=== PATIENT | male | born 1950 | race Caucasian/White ===

== ENCOUNTER 2021-03-23 21:34 | Emergency (ER) | payer OTHER, SELFPAY ==
[2021-03-23 21:40] VITALS: BP 175/74; PULSE 75; RESP 16; TEMP 37.2; O2SAT 97; BMI 25.7
[2021-03-24 00:20] LABS: Add Manual Diff / Slide Review NO; Basophils Absolute Auto 0 /uL (0-100); Basophils Percent Auto 0.4 % (0-2); Eosinophils Absolute Auto 0 /uL (0-450); Eosinophils Percent Auto 0.2 % (2-4); Hematocrit 37.5 % (41-53); Hemoglobin 12.6 g/dL (13.5-17.5); Lymphocytes Absolute Auto 900 /uL (1100-4500); Lymphocytes Percent Auto 8.6 % (25-40); Mean Corpuscular HGB Conc 33.6 % (30-36); Mean Corpuscular Hemoglobin 31.1 PG (26-34); Mean Corpuscular Volume 92.6 fL (80-100); Monocytes Absolute Auto 500 /uL (0-900); Monocytes Percent Auto 4.6 % (3-14); Neutrophils Absolute Auto 9500 /uL (1500-7000); Neutrophils Percent Auto 86.2 % (50-75); Platelet Count 132 X10^3/uL (150-400); Red Blood Cell Count 4.05 X10^6/uL (4.5-5.9)
[2021-03-24] MEDS: cefTRIAXone 2,000 MG in SODIUM CHLORIDE 0.9% 100 ML 200 ML IV (00:20)
[2021-03-24 00:33] LABS: Alanine Aminotransferase 26 IU/L (<50); Albumin 4.1 g/dL (3.5-5.0); Albumin Globulin Ratio 1.4 (1.0-2.8); Alkaline Phosphatase 54 U/L (38-126); Aspartate Aminotransferase 41 IU/L (17-59); BUN Creatinine Ratio 20.5 (6-22); Bilirubin Total 0.6 mg/dL (0.2-1.3); Blood Urea Nitrogen 23 mg/dL (9-20); Calcium 9.1 mg/dL (8.4-10.2); Carbon Dioxide 31 mmol/L (22-32); Chloride 98 mmol/L (98-107); Estimated Glomerular Filt Rate > 60.0 mL/min (>60); Glucose 122 mg/dL (80-110); HEMOLYSIS < 15 (0-50); Sodium 134 mmol/L (137-145); Total Protein 7.1 g/dL (6.3-8.2)
[2021-03-24 00:50] LABS: Procalcitonin 0.56 ng/mL (<0.5)
--- NOTE | 2021-03-24 01:04 | ED.EXTPRO ---
HPI - Extremity Problem General Chief complaint: Extremity Problem,Nontraumatic Stated complaint: rt calf infection Time Seen by Provider: 03/23/21 23:56 Source: patient Mode of arrival: Ambulatory Limitations: no limitations History of Present Illness HPI Narrative: 70-year-old male with history of squamous cell carcinoma of the skin, type 2 diabetes, hypertension presenting today with increased redness on his leg. He actually just received his COVID vaccine booster. However noticed that he was feeling a punky yesterday. Today she noticed that he was a little out of sorts which concerned her. This evening it was found that his right lower leg was erythematous. He seems to have some chronic venous stasis and he has had multiple skin squamous cell carcinomas removed from his legs. He has had body aches and chills as well. [place] but become to the emergency department this evening. Related Data Previous Rx's Medication Instructions Recorded doxycycline hyclate 100 mg capsule 100 mg PO BID #20 cap 03/24/21 Allergies Allergy/AdvReac Type Severity Reaction Status Date / Time No Known Drug Allergies Allergy Verified 03/23/21 22:57 Review of Systems Review of Systems Narrative: GENERAL: Body aches fevers chills HEENT: Denies sinus pain, ear pain, sore throat, difficulty swallowing, neck pain RESPIRATORY: Denies dyspnea, cough, wheezing, hemoptysis, sputum. CARDIOVASCULAR: Denies chest pain, palpitations, orthopnea, edema GASTROINTESTINAL: Denies nausea, vomiting, abdominal pain, diarrhea, constipation, melena. : Denies dysuria, frequency, incontinence, hematuria, urinary retention, flank pain. MUSCULOSKELETAL: Denies weakness, joint pain, or bony pain SKIN: Right leg erythema NEUROLOGIC: Denies weakness, dizziness, headache, numbness, change in speech, confusion PSYCHIATRIC: No concerning psychosocial issues. 12 point review of systems is negative except for those stated above and HPI Patient History Social History Smoking Status: Never smoker Smoking Status: Never smoker alcohol intake frequency: 0-2 drinks per day Substance Use Type: does not use Exam Initial Vital Signs Initial Vital Signs: Vital Signs Temperature 98.9 F 03/23/21 21:40 Pulse Rate 75 03/23/21 21:40 Respiratory Rate 16 03/23/21 21:40 Blood Pressure 175/74 H 03/23/21 21:40 Pulse Oximetry 97 09/21/21 21:40 GENERAL: Alert well-appearing 70-year-old male HEENT: Head atraumatic,EOMI, pupils reactive, face symmetric, moist mucous membranes CARDIOVASCULAR: Regular rate and rhythm without murmurs, rubs or gallops. RESPIRATORY: Breath sounds equal bilaterally, no wheezes rales or rhonchi. ABDOMEN: Soft, nontender. Normoactive bowel sounds all 4 quadrants. No guarding or rebound. EXTREMITIES: Normal range of motion, no clubbing or edema. Neurovascularly intact NEUROLOGICAL: Alert and oriented x4.Normal gait and speech SKIN: Right lower leg patchy erythematous areas blanchable no abscess, non circumferential remains below the knee Course Orders Ordered: ED Orders 03/23/21 23:56 Blood Culture Stat Complete Blood Count AUTO DIFF Stat Comprehensive Metabolic Panel Stat Lactate (Lactic Acid) Stat Procalcitonin Stat Discontinued Medications Ceftriaxone Sodium 2,000 mg/ (Sodium Chloride) 100 mls @ 200 mls/hr IV NOW ONE Stop: 03/23/21 23:57 Last Infusion: 03/24/21 00:54 Dose: 0 mls/hr Documented by: Admin: 03/24/21 00:20 Dose: 200 mls/hr Documented by: SHILA Vital Signs Vital signs: Vital Signs - 8 hr 03/23/21 21:40 03/24/21 01:43 Temperature 98.9 F 99.7 F H Pulse Rate 75 82 Respiratory Rate 16 18 Blood Pressure 175/74 H 159/71 H Pulse Oximetry 97 97 MDM - Extremity (Nontraumatic) Lab Data Result diagrams: 03/24/21 00:10 03/24/21 00:10 Labs: Lab Results 03/24/21 03/24/21 03/24/21 Range/Units 00:10 00:10 00:10 WBC 11.0 (4.5-11.0) X10^3/uL RBC 4.05 L (4.5-5.9) X10^6/uL Hgb 12.6 L (13.5-17.5) g/dL Hct 37.5 L (41-53) % MCV 92.6 (80-100) fL MCH 31.1 (26-34) PG MCHC 33.6 (30-36) % RDW 14.0 (11.6-14.8) % Plt Count 132 L (150-400) X10^3/uL Neut % (Auto) 86.2 H (50-75) % Lymph % (Auto) 8.6 L (25-40) % [place] % (Auto) 4.6 (3-14) % Eos % (Auto) 0.2 L (2-4) % Baso % (Auto) 0.4 (0-2) % Neut # (Auto) 9500 H (8053-5001) /uL Lymph # (Auto) 900 L (8387-1951) /uL [place] # (Auto) 500 (0-900) /uL Eos # (Auto) 0 (0-450) /uL Baso # (Auto) 0 (0-100) /uL Sodium 134 L (137-145) mmol/L Potassium 4.0 (3.4-5.1) mmol/L Chloride 98 (98-107) mmol/L Carbon Dioxide 31 (22-32) mmol/L BUN 23 H (9-20) mg/dL Creatinine 1.12 (0.66-1.25) mg/dL Estimated GFR > 60.0 (>60) mL/min BUN/Creatinine Ratio 20.5 (6-22) Glucose 122 H (80-110) mg/dL Lactate 1.0 (0.7-2.1) mmol/L Calcium 9.1 (8.4-10.2) mg/dL Total Bilirubin 0.6 (0.2-1.3) mg/dL AST 41 (17-59) IU/L ALT 26 (<50) IU/L Alkaline Phosphatase 54 (38-126) U/L Total Protein 7.1 (6.3-8.2) g/dL Albumin 4.1 (3.5-5.0) g/dL Globulin 3.0 (1.7-4.1) g/dL Albumin/Globulin Ratio 1.4 (1.0-2.8) Procalcitonin 0.56 H (<0.5) ng/mL [facility] Narrative Medical decision making narrative: Patient is found to have leukocytosis of 11 an elevated procalcitonin 0.56 site of infection is his right lower leg consistent with cellulitis. He is given 1 dose of Rocephin in the emergency department. No signs of severe sepsis. He overall appears well. At this time reasonable to start on outpatient antibiotics and monitor closely. Discharge Plan Departure Patient Disposition: Home Clinical Impression: Cellulitis of leg, right Instructions: DI for Cellulitis -- Adult Activity Restrictions/Additional Instructions: *You have been diagnosed with cellulitis right leg *What to do: At this time you have an infection of your right leg. Please monitor closely for any worsening redness. At this time you do not need to be admitted to the hospital *Continue to take medications as directed Doxycycline 100 mg twice a day for 7 days *Follow up with your primary care provider in 2-3 days *Return to ER if you should have increasing redness, increasing confusion, increasing pain any new, worsening or concerning symptoms Prescriptions: New doxycycline hyclate 100 mg capsule 100 mg PO BID Qty: 20 RF: 0
[2021-03-24 01:43] VITALS: BP 159/71; PULSE 82; RESP 18; TEMP 37.6; O2SAT 97
== END 2021-03-24 01:44 | disposition home or self-care (01) ==
PROVIDERS: Emergency Provider Emergency Medicine
DX: L03.115 Cellulitis of right lower limb (principal)
CPT/HCPCS: 36415; 80053; 83605; 84145; 85025; 87040; 96365; 99284; J0696

== ENCOUNTER → 2022-06-21 06:57 | Outpatient (CLI) | payer MEDICARE, SELFPAY ==
--- NOTE | 2022-06-21 | DI.ECHO.S_ITS ---
[place] [facility]---------+ [facility] +---------+ : : [address] : : : : [id number] : : : : Phone: [phone]+ Echocardiogram Report + + :Name: KRISTI CRYSTAL Study Date: 06/21/2022 Height: 73 in : :[facility] ReadingLocation: Weight: 220 lb : : Gender: Male BSA: 2.2 m2 : :: 1950 Age: 71 yrs BP: 164/64 mmHg: :Reason For Study: TIA : : Performed By: Carroll Mckeon : :Referring: LISA TINOCO W : + + Interpretation Summary 1) Normal left ventricular thickness, size, wall motion, and systolic function (EF 60-65%). 2) Normal right ventricular size and function. 3) No significant valvular abnormalities. 4) No prior Echo available for comparison. Procedure: A two-dimensional transthoracic echocardiogram with color flow and Doppler was performed. The study quality was technically adequate. There is no prior echocardiogram noted for this patient. The patient was in normal sinus rhythm during the exam. Left Ventricle: The left ventricle is normal in size. There is normal left ventricular wall thickness. The ejection fraction is estimated to be 60-65%. There are no focal wall motion abnormalities. Diastolic parameters suggest a relaxation abnormality of the left ventricle, consistent with probable normal filling pressures. Right Ventricle: The right ventricle is normal in size and function. Atria: Both atria are moderately dilated. There is no Doppler evidence for an atrial septal defect. Mitral Valve: There is mild mitral annular calcification. There is trace mitral regurgitation. Aortic Valve: The aortic valve is trileaflet. The aortic valve is mildly calcified. The aortic valve opens well. There is no aortic valve stenosis. No aortic regurgitation is present. Tricuspid Valve: The tricuspid valve is normal in structure and function. There is trace tricuspid regurgitation. The right ventricular systolic pressure is estimated to be at least 34 mmHg based on an estimated right atrial pressure of 3 mm Hg. Pulmonic Valve: The pulmonic valve is not well visualized. There is trace pulmonic regurgitation. Great Vessels: The aortic root is normal size. The dimensions of the ascending aorta are normal. The pulmonary artery is normal size. The IVC is of normal diameter and collapses greater than 50% with a sniff. This suggests a low right atrial pressure of 3 mm Hg. Pericardium/ Pleura There is no pericardial effusion. There is no pleural effusion. MMode/2D Measurements & Calculations LVIDd: 5.2 cm LVOT diam: 2.2 cm LVIDs: 3.3 cm Ao root diam: 3.4 cm FS: 37.2 % asc Aorta Diam: 3.3 cm EPSS: 0.22 cm IVSd: 1.00 cm LVPWd: 1.1 cm LV randall. diameter/BSA (cm/m^2): 2.3 LV sys. diameter/BSA (cm/m^2): 1.5 LA A2 area: 24.4 cm2 RA long axis: 6.1 cm LA A4 area: 28.0 cm2 RA area: 24.2 cm2 LA length (vol): 6.6 cm RA vol: 82.1 ml LA vol: 87.2 ml RA : 36.6 ml/m2 LA vol index: 38.9 ml/m2 IVC diam: 1.9 cm TAPSE: 2.7 cm Doppler Measurements & Calculations Ao V2 max: 147.4 cm/sec LVOT Max Umair: 132.0 cm/sec Ao V2 mean: 112.4 cm/sec LV V1 max P.0 mmHg Ao max P.7 mmHg LV V1 VTI: 36.8 cm Ao mean P.4 mmHg BERT(I,D): 3.5 cm2 Ao V2 VTI: 39.8 cm BERT(V,D): 3.4 cm2 sev ratio: 0.93 BERT indexed to BSA (cm^2/m^2): 1.6 MV E max umair: 81.0 cm/sec TR max umair: 280.2 cm/sec MV A max umair: 105.0 cm/sec TR max P.4 mmHg MV E/A: 0.77 PA V2 max: 96.2 cm/sec Med Peak E' Umair: 6.6 cm/sec PA V2 mean: 68.1 cm/sec E/E' med: 12.3 PA mean P.1 mmHg Lat Peak E' Umair: 8.3 cm/sec PA pr(Accel): 24.2 mmHg E/E' lat: 9.7 E/e' average: 11.0 MV dec time: 0.22 sec SV([facility]): 140.1 ml Reading Physician:01:02 PM
== END ==
PROVIDERS: PCP Internal Medicine; Referring Provider Internal Medicine; Visit Provider Internal Medicine
DX: G45.9 Transient cerebral ischemic attack, unspecified (principal); I34.81 Nonrheumatic mitral (valve) annulus calcification
CPT/HCPCS: 93306

== ENCOUNTER 2025-05-12 18:43 | Inpatient (IN) | payer MEDICARE, SELFPAY ==
[2025-05-12] VITALS (19 sets, daily range): BP systolic 182–221; BP diastolic 63–152; PULSE 52–63; RESP 15–24; TEMP 36.2–36.3; O2SAT 89–99; BMI 28.0
--- NOTE | 2025-05-12 18:58 | PC.NURSE ---
Dr Garrido at beside. LKW 1600. Code stroke called
--- NOTE | 2025-05-12 19:00 | DI.CT.S_ITS ---
PROCEDURE: CT STROKE INDICATIONS: Positive BE-FAST, Stroke symptoms TECHNIQUE: Noncontrast 4.5 mm thick angled axial sections acquired from the foramen magnum to the vertex, with coronal reformats. For radiation dose reduction, the following was used: automated exposure control, adjustment of mA and/or kV according to patient size. COMPARISON: None. FINDINGS: Image quality: Diagnostic. CSF spaces: Basal cisterns are patent. No extra-axial fluid collections. Ventricles are normal in size and shape. Brain: No midline shift. No intracranial mass effect or hemorrhage. Thakkar- white matter interface is normal. Diffuse cerebral volume loss. Patchy areas of white matter hypoattenuation often associated with small vessel ischemic disease. Intracranial atherosclerotic calcification. Focal hypoattenuating lesion in the teja on the left. Skull and face: Calvarium and visualized facial bones are intact, without suspicious lesions. Sinuses: Partial opacification of the ethmoidal sinuses and mucous retention cysts in the maxillary sinuses. IMPRESSION: No acute intracranial hemorrhage. No large vessel territory infarct. Among the white-matter lesions there is a focal hypoattenuating lesion in the teja. This could represent an acute or chronic lacunar infarct. Findings were discussed with Dr Angeles Garrido by myself by telephone at 7:29 p.m. PST 05/12/2025. This study fulfills neurological imaging criteria for inclusion or exclusion of acute stroke therapies based on available published neurological imaging guidelines. Dictated by: Carlos Drew M.D. on 05/12/2025 at 19:23 Approved by: Carlos Drew M.D. on 05/12/2025 at 19:29
--- NOTE | 2025-05-12 19:00 | DI.CT.S_ITS ---
PROCEDURE: CT ANGIO HEAD AND NECK INDICATIONS: facial assymetry TECHNIQUE: After the administration of intravenous contrast, 1 mm thick sections acquired from the aortic arch through the [place] of [place]. 3-dimensional onyibjh-usnrwrvvh-tzhcmmyvgf (MIP) and/or volume rendering reformats were acquired of the central intracranial vasculature and neck separately. For radiation dose reduction, the following was used: automated exposure control, adjustment of mA and/or kV according to patient size. COMPARISON: None. FINDINGS: Image quality: Diagnostic. Cerebral CT Angiogram: Internal carotid arteries: No acute findings. Moderate atherosclerosis of the petrous and cavernous portions bilaterally. No occlusion. No aneurysm. Anterior cerebral arteries: Unremarkable. No significant stenosis. No occlusion. No aneurysm. Middle cerebral arteries: Unremarkable. No significant stenosis. No occlusion. No aneurysm. Posterior cerebral arteries: Unremarkable. No significant stenosis. No occlusion. No aneurysm. Basilar artery: Unremarkable. No significant stenosis. No occlusion. No aneurysm. Vertebral arteries: Intracranial atherosclerotic calcifications. Dural venous sinuses: Unremarkable given phase of enhancement. Other: Arterial phase appearance of the brain parenchyma is unremarkable. Neck CT Angiogram: Internal carotid arteries: 50-75 percent stenosis of the proximal right ICA which may be overestimated by bulky calcifications. Less than 50 percent stenosis of the proximal left ICA which may be overestimated by bulky calcifications. No dissection or occlusion. Common carotid arteries: Unremarkable. No significant stenosis. No dissection or occlusion. External carotid arteries: Unremarkable. No occlusion. Vertebral arteries: Unremarkable. No significant stenosis. No dissection or occlusion. Aortic Arch and Mediastinum: Partially visualized aortic arch unremarkable without evidence of aneurysm. Origins of the great vessels unremarkable. Other: Severe degenerative changes of the cervical spine. IMPRESSION: No acute occlusion or critical stenosis. Calcified atherosclerotic plaques with Right ICA stenosis approximately 50-75 percent. Left ICA stenosis less than 50 percent. Any quantitative measurements of stenosis were performed using NASCET criteria. Dictated by: Carlos Drew M.D. on 05/12/2025 at 19:36 Approved by: Carlos Drew M.D. on 05/12/2025 at 19:41
--- NOTE | 2025-05-12 19:00 | DI.RAD.S_ITS ---
PROCEDURE: XR CHEST 1V INDICATIONS: Possible stroke TECHNIQUE: One view of the chest was acquired. COMPARISON: None. FINDINGS: Surgical changes and devices: None. Lungs and pleura: Lungs are clear. No pleural effusions or pneumothorax. Mediastinum: Mediastinal contours appear normal. Heart size is normal. Atherosclerotic vascular disease of the aortic arch. Bones and chest wall: No suspicious bony lesions. Overlying soft tissues appear unremarkable. IMPRESSION: No acute cardiopulmonary abnormality is seen. Dictated by: Kostas Farrell M.D. on 05/12/2025 at 19:46 Approved by: Kostas Farrell M.D. on 05/12/2025 at 19:46
[2025-05-12 19:07] LABS: Add Manual Diff / Slide Review NO; Hematocrit 38.1 % (41-53); Hemoglobin 13.1 g/dL (13.5-17.5); Lymphocytes Absolute Auto 1000 /uL (1100-4500); Mean Corpuscular HGB Conc 34.4 % (30-36); Mean Corpuscular Hemoglobin 31.2 PG (26-34); Mean Corpuscular Volume 90.9 fL (80-100); Platelet Count 173 X10^3/uL (150-400)
[2025-05-12 19:18] LABS: Alanine Aminotransferase 20 IU/L (<50); Albumin 4.5 g/dL (3.5-5.0); Albumin Globulin Ratio 1.6 (1.0-2.8); Alkaline Phosphatase 55 U/L (38-126); Blood Urea Nitrogen 33 mg/dL (9-20); Calcium 9.2 mg/dL (8.4-10.2); Carbon Dioxide 25 mmol/L (22-32); Chloride 102 mmol/L (98-107); Creatine Kinase 130 U/L (55-170); Estimated Glomerular Filt Rate 54 mL/min (>60); Globulin 2.9 g/dL (1.7-4.1); Glucose 255 mg/dL (70-99); HEMOLYSIS < 15 (0-50); Potassium 3.6 mmol/L (3.4-5.1); Sodium 138 mmol/L (137-145); Total Protein 7.4 g/dL (6.3-8.2)
[2025-05-12 19:29] LABS: INR 1.1 (0.9-1.3); PTT Partial Thromboplastin Tim 31 SECONDS (25.1-36.5); Prothrombin Time 12.4 SECONDS (9.4-12.5)
[2025-05-12 19:30] LABS: Troponin I < 0.012 ng/mL (0.01-0.034)
--- NOTE | 2025-05-12 19:32 | EKG_ITS ---
[facility] [address], [place] [address] Test Date: 2025-05-12 Pat Name: Clark Briseno Department: [facility] Room: Gender: Male [employer] Fe[employer]: : 1950 Requested By: Order Number: [id number] Reading MD: Clay Acevedo MD Measurements Intervals [place] Rate: 55 P: 49 PA: 164 QRS: 29 QRSD: 100 T: 65 QT: 482 QTc: 461 Interpretive Statements Sinus bradycardia Nonspecific ST abnormality Electronically Signed On 05-13-2025 7:46:39 PST by Clay Acevedo MD
--- NOTE | 2025-05-12 19:33 | ED_ITS ---
HPI - Neuro Symptoms/Deficit General Chief Complaint: Neuro Symptoms/Deficit Stated Complaint: PC ref, mouth drooping, poss stroke? Time Seen by Provider: 05/12/25 18:52 Source: patient Mode of arrival: Ambulatory History of Present Illness HPI Narrative: 74-year-old gentleman with a history of Parkinson's disease, hyperlipidemia, hypertension who at 4:00 p.m. today was noted by his to have weakness to the right side of his face. On arrival in the emergency room he also had some mild dysarthria. Code stroke was called. He noted that he had a bit of gait unsteadiness walking into the hospital but on physical exam he had normal strength and no diminished sensation appreciated. Related Data Previous Rx's ?Medication ?Instructions ?Recorded doxycycline hyclate 100 mg capsule 100 mg PO BID #20 c aps 03/24/21 Allergies Allergy/AdvReac Type Severity Reaction Status Date / Time No Known Drug Allergies Allergy Verified 05/12/25 18:50 Review of Systems Review of Systems Narrative: Pertinent positive and negative findings as per HPI Patient History Social History Smoking Status: Former smoker Smoking Status: Former smoker alcohol intake frequency: 0-2 drinks per day Exam Initial Vital Signs Initial Vital Signs: Vital Signs Temperature 97.4 F L 05/12/25 18:46 Pulse Rate 63 05/12/25 18:46 Respiratory Rate 18 05/12/25 18:46 Blood Pressure 182/79 H 05/12/25 18:46 Pulse Oximetry 97 05/12/25 18:46 Oxygen Delivery Method Room Air 05/12/25 18:46 General: Healthy appearing, in no acute distress. Able to give a complete and coherent history. Well-nourished well-developed HEENT: Moist mucous membranes, normal sclera with reactive pupils, Neck: No JVD, supple Respiratory: Lungs are clear to auscultation, no wheezing no rales no rhonchi. Full and symmetrical air movement Cardiac: Regular rate and rhythm no murmurs no bruits Abdomen: Soft, nontender, no rebound or guarding, no flank pain Skin: Warm and dry, no rashes Neurologic: Mild right facial droop, mild dysarthria NIH Extremities: No trauma, well perfused Psych: Cooperative, appropriate insight and affect NIH Stroke Scale/Score 05/12/2025 RESULT SUMMARY: 2 points NIH Stroke Scale INPUTS: 1A: Level of consciousness ?> 0 = Alert; keenly responsive 1B: Ask month and age ?> 0 = Both questions right 1C: 'Blink eyes' & 'squeeze hands' ?> 0 = Performs both tasks 2: Horizontal extraocular movements ?> 0 = Normal 3: Visual aquino ?> 0 = No visual loss 4: Facial palsy ?> 1 = Minor paralysis (flat nasolabial fold, smile asymmetry) 5A: Left arm motor drift ?> 0 = No drift for 10 seconds 5B: Right arm motor drift ?> 0 = No drift for 10 seconds 6A: Left leg motor drift ?> 0 = No drift for 5 seconds 6B: Right leg motor drift ?> 0 = No drift for 5 seconds 7: Limb Ataxia ?> 0 = No ataxia 8: Sensation ?> 0 = Normal; no sensory loss 9: Language/aphasia ?> 0 = Normal; no aphasia 10: Dysarthria ?> 1 = Mild-moderate dysarthria: slurring but can be understood 11: Extinction/inattention ?> 0 = No abnormality Course Orders Ordered: ED Orders 05/12/25 18:59 Complete Blood Count AUTO DIFF Stat Comprehensive Metabolic Panel Stat PTT Partial Thromboplastin Quentin Stat Prothrombin Time INR Stat Troponin & CK Cardiac Panel Stat 05/12/25 19:[address] angio head and neck Stat XR chest 1V Stat EKG-12 Lead Stat 05/12/25 20:18 Urine Culture Stat Urine Drug Screen, Rapid Stat Urine Microscopic Stat 05/12/25 22:07 Consult to Occupational Therapy Evaluate & Treat Consult to Physical Therapy Evaluate & Treat Consult to Speech Therapy Evaluate & Treat 05/13/25 06:00 Basic Metabolic Panel DAILY Complete Blood Count AUTO DIFF DAILY Acetaminophen (Acetaminophen 325 Mg Tablet) 650 mg PO Q6H PRN PRN Reason: Fever/Mild Pain (1-3) Aspirin (Aspirin Ec 81 Mg Tablet) 81 mg PO DAILY MARY Clopidogrel Bisulfate (Clopidogrel 75 Mg Tablet) 75 mg PO DAILY [facility] Heparin Sodium (Porcine) (Heparin 5,000 Unit/Ml Vial) 5,000 unit SUBCUT BID [facility] Sodium Chloride (Normal Saline 0.9%) 1,000 mls @ 100 mls/hr IV CONT MARY Naloxone HCl (Naloxone 0.4 Mg/Ml Vial) 0.2 mg IV Q2MIN PRN PRN Reason: Opiate Reversal Ondansetron HCl (Ondansetron 4 Mg/2 Ml Inj) 4 mg IV NOW PRN PRN Reason: Nausea And Vomiting Ondansetron HCl (Ondansetron 4 Mg Odt) 4 mg PO NOW PRN PRN Reason: Nausea And Vomiting Ondansetron HCl (Ondansetron 4 Mg/2 Ml Inj) 4 mg IV Q8HR PRN PRN Reason: Nausea And Vomiting Vital Signs Vital signs: Vital Signs - 8 hr 05/12/25 18:46 05/12/25 19:21 05/12/25 19:22 Temperature 97.4 F L Pulse Rate 63 60 Respiratory Rate 18 Blood Pressure 182/79 H Pulse Oximetry 97 98 98 Oxygen Delivery Method Room Air 05/12/25 19:22 05/12/25 19:30 05/12/25 19:30 Temperature Pulse Rate 57 L Respiratory Rate Blood Pressure 184/76 H 186/78 H Pulse Oximetry 99 Oxygen Delivery Method 05/12/25 20:00 05/12/25 20:01 05/12/25 20:01 Temperature Pulse Rate 56 L 56 L Respiratory Rate Blood Pressure 212/80 H Pulse Oximetry 96 97 Oxygen Delivery Method MDM - Neuro Symptoms/Deficit Lab Data 05/12/25 18:59 05/12/25 18:59 Labs: Lab Results 05/12/25 05/12/25 05/12/25 Range/Units 18:55 18:59 20:18 WBC 5.9 (4.5-11.0) X10^3/uL RBC 4.19 L (4.5-5.9) X10^6/uL Hgb 13.1 L (13.5-17.5) g/dL Hct 38.1 L (41-53) % MCV 90.9 (80-100) fL MCH 31.2 (26-34) PG MCHC 34.4 (30-36) % RDW 13.7 (11.6-14.8) % Plt Count 173 (150-400) X10^3/uL Neut % (Auto) 72.5 (50-75) % Lymph % (Auto) 17.7 L (25-40) % [place] % (Auto) 5.7 (3-14) % Eos % (Auto) 3.4 (2-4) % Baso % (Auto) 0.7 (0-2) % Neut # (Auto) 4300 (9539-2876) /uL Lymph # (Auto) 1000 L (1508-3862) /uL [place] # (Auto) 300 (0-900) /uL Eos # (Auto) 200 (0-450) /uL Baso # (Auto) 0 (0-100) /uL PT 12.4 (9.4-12.5) SECONDS INR 1.1 (0.9-1.3) APTT 31 (25.1-36.5) SECONDS Sodium 138 (137-145) mmol/L Potassium 3.6 (3.4-5.1) mmol/L Chloride 102 (98-107) mmol/L Carbon Dioxide 25 (22-32) mmol/L BUN 33 H (9-20) mg/dL Creatinine 1.35 H (0.66-1.25) mg/dL Estimated GFR 54 L (>60) mL/min BUN/Creatinine Ratio 24.4 H (6-22) Glucose 255 H (70-99) mg/dL POC Whole Bld Glucose 247 H (70-99) mg/dL Calcium 9.2 (8.4-10.2) mg/dL Total Bilirubin 0.4 (0.2-1.3) mg/dL AST 50 (17-59) IU/L ALT 20 (<50) IU/L Alkaline Phosphatase 55 (38-126) U/L Total Creatine Kinase 130 (55-170) U/L Troponin I < 0.012 (0.01-0.034) ng/mL Total Protein 7.4 (6.3-8.2) g/dL Albumin 4.5 (3.5-5.0) g/dL Globulin 2.9 (1.7-4.1) g/dL Albumin/Globulin Ratio 1.6 (1.0-2.8) Urine RBC 0-1/hpf (0-5/HPF) Urine WBC 0-1/hpf (0-5/HPF) Ur Squamous Epith Cells None seen (0-5/HPF) Ur Transition Epith Cell 0-1/hpf (0-5/HPF) Urine Bacteria Few (2-10) H (None) Hyaline Casts 0-1/lpf (None) Urine Mucus 1+ H (Negative) Ur Culture Indicated? Cult not indicated Vol Urine Centrifuged 10ml (spun) U Opiates 300ng/mL cut Negative (Negative) Ur Oxycodone Screen Negative (Negative) Urine Methadone Screen Negative (Negative) Ur Barbiturates Screen Negative (Negative) U Tricyclic Antidepress Negative (Negative) Ur Phencyclidine Scrn Negative (Negative) Ur Amphetamines Screen Negative (Negative) U Methamphetamines Scrn Negative (Negative) Ur MDMA Scrn (Ecstasy) Negative (Negative) U Benzodiazepines Scrn Negative (Negative) Urine Cocaine Screen Negative (Negative) U Marijuana (THC) Screen Negative (Negative) Urine pH Normal (Normal) Urine Specific [place] Normal (Normal) Ur Creatinine Normal (Normal) Urine Dip Bedside Urine Glucose 250 mg/dl Bedside Urine Bilirubin - Negative Bedside Urine Ketone +/- 5 Urine Specific [place] 1.015 Bedside Urine Occult Blood - Negative Bedside Urine pH 6.0 Bedside Urine Protein + 30 Bedside Urine Urobilinogen - Negative Bedside Urine Nitrite - Negative Bedside Urine Leukocytes - Negative Esterase Imaging Data CT scan - head: Radiologist's Impression: PROCEDURE: CT STROKE INDICATIONS: Positive BE-FAST, Stroke symptoms TECHNIQUE: Noncontrast 4.5 mm thick angled axial sections acquired from the foramen magnum to the vertex, with coronal reformats. For radiation dose reduction, the following was used: automated exposure control, adjustment of mA and/or kV according to patient size. COMPARISON: None. FINDINGS: Image quality: Diagnostic. CSF spaces: Basal cisterns are patent. No extra-axial fluid collections. Ventricles are normal in size and shape. Brain: No midline shift. No intracranial mass effect or hemorrhage. Thak[place]- white matter interface is normal. Diffuse cerebral volume loss. Patchy areas of white matter hypoattenuation often associated with small vessel ischemic disease. Intracranial atherosclerotic calcification. Focal hypoattenuating lesion in the teja on the left. Skull and face: Calvarium and visualized facial bones are intact, without suspicious lesions. Sinuses: Partial opacification of the ethmoidal sinuses and mucous retention cysts in the maxillary sinuses. IMPRESSION: No acute intracranial hemorrhage. No large vessel territory infarct. Among the white-matter lesions there is a focal hypoattenuating lesion in the teja. This could represent an acute or chronic lacunar infarct. Findings were discussed with Dr Angeles Garrido by myself by telephone at 7:29 p.m. PST 05/12/2025. This study fulfills neurological imaging criteria for inclusion or exclusion of acute stroke therapies based on available published neurological imaging guidelines. Dictated by: Carlos Drew M.D. on 05/12/2025 at 19:23 CT A head and neck: Radiologist's Impression: OCEDURE: CT ANGIO HEAD AND NECK INDICATIONS: facial assymetry TECHNIQUE: After the administration of intravenous contrast, 1 mm thick sections acquired from the aortic arch through the [place]. 3-dimensional [id number] (MIP) and/or volume rendering reformats were acquired of the central intracranial vasculature and neck separately. For radiation dose reduction, the following was used: automated exposure control, adjustment of mA and/or kV according to patient size. COMPARISON: None. FINDINGS: Image quality: Diagnostic. Cerebral CT Angiogram: Internal carotid arteries: No acute findings. Moderate atherosclerosis of the petrous and cavernous portions bilaterally. No occlusion. No aneurysm. Anterior cerebral arteries: Unremarkable. No significant stenosis. No occlusion. No aneurysm. Middle cerebral arteries: Unremarkable. No significant stenosis. No occlusion. No aneurysm. Posterior cerebral arteries: Unremarkable. No significant stenosis. No occlusion. No aneurysm. Basilar artery: Unremarkable. No significant stenosis. No occlusion. No aneurysm. Vertebral arteries: Intracranial atherosclerotic calcifications. Dural venous sinuses: Unremarkable given phase of enhancement. Other: Arterial phase appearance of the brain parenchyma is unremarkable. Neck CT Angiogram: Internal carotid arteries: 50-75 percent stenosis of the proximal right ICA which may be overestimated by bulky calcifications. Less than 50 percent stenosis of the proximal left ICA which may be overestimated by bulky calcifications. No dissection or occlusion. Common carotid arteries: Unremarkable. No significant stenosis. No dissection or occlusion. External carotid arteries: Unremarkable. No occlusion. Vertebral arteries: Unremarkable. No significant stenosis. No dissection or occlusion. Aortic Arch and Mediastinum: Partially visualized aortic arch unremarkable without evidence of aneurysm. Origins of the great vessels unremarkable. Other: Severe degenerative changes of the cervical spine. IMPRESSION: No acute occlusion or critical stenosis. Calcified atherosclerotic plaques with Right ICA stenosis approximately 50-75 percent. Left ICA stenosis less than 50 percent. Any quantitative measurements of stenosis were performed using NASCET criteria. Dictated by: Carlos Drew M.D. on 05/12/2025 at 19:36 MDM Narrative Medical decision making narrative: CC: Right-sided facial weakness with dysarthria Complicating co-morbidities: Hypertension, hyperlipidemia, prior TIA Data collected from: patient, Medical records reviewed: No records are available Differential considered: Wallace's palsy, stroke, infectious etiology Exam documented above, pertinent findings include: Mild right facial droop, tongue does not deviate when extended, mild dysarthria remainder of exam is benign. NIH score equals 2 Lab Test results independently reviewed as above. Pertinent findings: CBC is unremarkable Metabolic panel shows creatinine at 1.35. Glucose at 2:55 a.m. Troponin is undetectable Urine does not suggest urinary tract infection Urine tox screen is unremarkable Independently reviewed EKG: Sinus bradycardia at a rate of 55. Nonspecific STT wave changes without acute ischemia Imaging studies independently reviewed: CT of the brain shows Among the white-matter lesions there is a focal hypoattenuating lesion in the teja. This could represent an acute or chronic lacunar infarct. CT angiogram of the head and neck is unremarkable Chest x-ray is unremarkable Consultations: Stroke consultation with [facility], Dr. Princess Jha. Given an NIH score of 2 without debilitating findings and possible acute lacunar infarct recommendation was to not administer TNK. She did recommend Plavix slowed with 300 mg, discontinuing the aspirin/dipyridamole and continuing 75 mg of Plavix with 81 mg of aspirin daily for 21 days and then continuing the simply aspirin. Continuing aggressive lipid and blood pressure control with permissive hypertension at this time. Recommended MRI, echocardiogram. Re-evaluation and discussion: 10pm patient is re-evaluated, persistent right middle minor facial droop and dysarthria unchanged NIH score. Reason for no TNK administered given as well as recommendations for hospitalization, change to medications, discontinuation of dipyridamole, need for MRI and consideration of echocardiogram all reviewed. He is hemodynamically stable. Questions has been answered, care is discussed with the hospitalist service and he will be admitted for further workup Discharge Plan Departure Patient Disposition: Admitted as Observation Clinical Impression: Cerebrovascular accident Qualifiers: CVA mechanism: unspecified Qualified Code(s): I63.9 - Cerebral infarction, unspecified Admit Date/Time: 05/12/25 22:12 Admit Provider: Jayro Dawkins
[2025-05-12 20:29] LABS: UR Morphine/Opiate cutoff 300 Negative (Negative); Ur Specific Gravity Normal (Normal); Urine MDMA Negative (Negative); Urine Methamphetamines Negative (Negative); Urine Tetrahydrocannabinol Negative (Negative); Urine Tricyclic Antidepressant Negative (Negative)
[2025-05-12 20:37] LABS: Culture Indicated Urine Cult Not Indicated
[2025-05-12] MEDS: CLOPIDOGREL 75 MG TABLET 300 MG PO (23:17)
[2025-05-13] MEDS: SODIUM CHLORIDE 0.9% 1,000 ML 100 ML IV (00:08)
[2025-05-13] MEDS: ONDANSETRON 4 MG/2 ML INJ IV (00:08)
--- NOTE | 2025-05-13 00:55 | DI.MRI.S_ITS ---
PROCEDURE: MR HEAD/BRAIN WO CON INDICATIONS: cva rule out TECHNIQUE: Non-contrast axial T1 spin echo, axial T2 fast spin echo, sagittal and axial FLAIR, coronal T2 fast spin echo, axial gradient echo, axial diffusion and ADC through the brain. COMPARISON: [facility], CT, CT STROKE, 05/12/2025, 19:03. FINDINGS: Image quality: Excellent. CSF spaces: Ventricles appear symmetric in size and shape. Basal cisterns are patent. No extra-axial fluid collections. Brain: No intracranial bleeds or mass effects. There is cerebral volume loss for age. There are mild to moderate, age-appropriate periventricular and deep white matter chronic small vessel ischemic changes. Brainstem appears normal. Diffusion-weighted images show anterior and mid pontine paramidline acute infarct. This area of restricted water diffusion measures approximately 0.8 x 1.5 cm on axial diffusion image 7 of series 11. There is also a tiny punctate midline infarct in the teja on the same image. There is associated cytotoxic edema. No chronic ischemic insults. Normal intravascular flow voids are present. Skull and face: Calvarial bone marrow is normal in signal. Orbits are normal. Sinuses: Subtotal opacification of the right mastoids. Right maxillary sinus mucous retention cyst. IMPRESSION: 1. Acute infarct involving the teja, with a 0.8 x 1.5 cm right paramidline infarct and a punctate midline infarct present. There is associated cytotoxic edema. 2. Age-appropriate [id number] small vessel ischemic change. Dictated by: Vazquez Peguero M.D. on 05/13/2025 at 11:10 Approved by: Vazquez Peguero M.D. on 05/13/2025 at 11:13
[2025-05-13] MEDS: hydrALAZINE 20 MG/ML VIAL 5 MG IV (01:30)
[2025-05-13 04:30] VITALS: BP 171/56; PULSE 55; RESP 18; TEMP 36.4; O2SAT 95
[2025-05-13 06:29] LABS: Add Manual Diff / Slide Review NO; Hematocrit 34.0 % (41-53); Hemoglobin 11.9 g/dL (13.5-17.5); Lymphocytes Absolute Auto 1100 /uL (1100-4500); Mean Corpuscular HGB Conc 35.2 % (30-36); Mean Corpuscular Hemoglobin 31.7 PG (26-34); Mean Corpuscular Volume 90.2 fL (80-100); Platelet Count 144 X10^3/uL (150-400)
[2025-05-13 06:39] LABS: Blood Urea Nitrogen 26 mg/dL (9-20); Calcium 8.5 mg/dL (8.4-10.2); Carbon Dioxide 25 mmol/L (22-32); Chloride 103 mmol/L (98-107); Cholesterol 127 mg/dL (140-199); Estimated Glomerular Filt Rate > 60 mL/min (>60); Glucose 221 mg/dL (70-99); HDL Cholesterol 46 mg/dL (40-60); HEMOLYSIS < 15 (0-50); Hemoglobin A1C% w Est Avg Glu 8.8 % (4.0-6.0); Potassium 3.8 mmol/L (3.4-5.1); Sodium 137 mmol/L (137-145); Triglycerides 124 mg/dL (35-150)
--- NOTE | 2025-05-13 07:16 | PM.HP.1 ---
History of Present Illness History of Present Illness Date Patient Seen: 05/13/25 Chief complaint: PC ref, mouth drooping, poss stroke? Narrative: Summary (ED doctor): 74-year-old gentleman with a history of Parkinson's disease, hyperlipidemia, hypertension who at 4:00 p.m. today was noted by his to have weakness to the right side of his face. On arrival in the emergency room he also had some mild dysarthria. Code stroke was called. He noted that he had a bit of gait unsteadiness walking into the hospital but on physical exam he had normal strength and no diminished sensation appreciated. NIH Stroke Scale/Score 05/12/2025 RESULT SUMMARY: 2 points NIH Stroke Scale INPUTS: 1A: Level of consciousness ?> 0 = Alert; keenly responsive 1B: Ask month and age ?> 0 = Both questions right 1C: 'Blink eyes' & 'squeeze hands' ?> 0 = Performs both tasks 2: Horizontal extraocular movements ?> 0 = Normal 3: Visual aquino ?> 0 = No visual loss 4: Facial palsy ?> 1 = Minor paralysis (flat nasolabial fold, smile asymmetry) 5A: Left arm motor drift ?> 0 = No drift for 10 seconds 5B: Right arm motor drift ?> 0 = No drift for 10 seconds 6A: Left leg motor drift ?> 0 = No drift for 5 seconds 6B: Right leg motor drift ?> 0 = No drift for 5 seconds 7: Limb Ataxia ?> 0 = No ataxia 8: Sensation ?> 0 = Normal; no sensory loss 9: Language/aphasia ?> 0 = Normal; no aphasia 10: Dysarthria ?> 1 = Mild-moderate dysarthria: slurring but can be understood 11: Extinction/inattention ?> 0 = No abnormality S: He is doing well. He still has droop and some slurred speech. His right arm is also weak with OT evaluation and slow with coordination. Speech is requested modified barium swallow. ROS: All else reviewed and otherwise unremarkable except as noted in the history and physical. O: NAD, alert and oriented, fluent speech, calm. Normocephalic skull, EOMI, anicteric sclera, symmetric pupils. Oropharynx unremarkable, no droop. Neck supple, midline trachea, no adenopathy. Lungs clear, normal rate and effort. Heart regular, no murmur gallop or rub. Abdomen is soft, non distended and non tender. Extremities are free of edema. Skin is free of rash or lesions. Joints are not swollen or deformed. Judgment appears to be normal. IMAGING: CTH: No acute intracranial hemorrhage. No large vessel territory infarct. Among the white-matter lesions there is a focal hypoattenuating lesion in the teja. This could represent an acute or chronic lacunar infarct. CTA Head and neck: No acute occlusion or critical stenosis. Calcified atherosclerotic plaques with Right ICA stenosis approximately 50-75 percent. Left ICA stenosis less than 50 percent. A/P: 1. CVA. 2. Parkinson's disease. 3. Hyperlipidemia 4. Hypertension PLAN: -PT and OT evaluation. -MRI brain confirms teja stroke. -swallow eval. -Possible DC 05/14. MR brain: 1. Acute infarct involving the teja, with a 0.8 x 1.5 cm right paramidline infarct and a punctate midline infarct present. There is associated cytotoxic edema. 2. Age-appropriate [id number] small vessel ischemic change. He requires another midnight of hospital care. Supports inpatient status. [facility] Social History household members: spouse Smoking Status: Former smoker Meds Home Medications and Allergies Home Medications ?Medication ?Instructions ?Recorded ?Confirmed ?Type aspirin 25 mg-dipyridamole 200 mg 1 cap PO BID 05/12/25 05/12/25 History capsule,ext.release 12 hr multiphase carbidopa 25 mg-levodopa 100 mg 2.5 tab PO DAILY 05/12/25 05/12/25 History tablet felodipine 10 mg tablet,extended 10 mg PO BID blood pressure 05/12/25 05/12/25 History release 24 hr insulin glargine 100 unit/mL (3 30 - 35 unit SUBCUT DAILY 05/12/25 05/12/25 History mL) subcutaneous pen (Lantus Solostar U-100 Insulin) insulin lispro 100 unit/mL 14 unit SUBCUT 3XD 05/12/25 05/12/25 History subcutaneous pen metoprolol succinate 25 mg 25 mg PO DAILY blood pressure 05/12/25 05/12/25 History tablet,extended release 24 hr rosuvastatin 40 mg tablet 40 mg PO DAILY 05/12/25 05/12/25 History semaglutide 1 mg/dose (4 mg/3 mL) 1 mg SUBCUT diabetes mellitus 05/12/25 History subcutaneous pen injector (Ozempic) tadalafil 20 mg tablet 20 mg PO DAILY dysuria 05/12/25 05/12/25 History valsartan 160 mg tablet 160 mg PO DAILY 05/12/25 05/12/25 History acetaminophen 300 mg-codeine 30 mg 1 tab PO Q4-6H PRN pain (scale 05/13/25 05/13/25 History tablet score 4-6) hydrochlorothiazide 50 mg tablet 50 mg PO DAILY 05/13/25 05/13/25 History sildenafil 25 mg tablet 20 mg PO DAILY sexual activity 05/13/25 05/13/25 History Allergies Allergy/AdvReac Type Severity Reaction Status Date / Time No Known Drug Allergies Allergy Verified 05/12/25 18:50 Exam Vital Signs (past 8 hours): - 05/12/25 23:30 05/12/25 23:50 05/13/25 00:00 Temperature 97.1 F L Pulse Rate 52 L 53 L Respiratory Rate 18 Blood Pressure 205/63 H Pulse Oximetry 98 99 Oxygen Delivery Method Room Air Oxygen Flow Rate 0 05/13/25 04:30 Temperature 97.6 F Pulse Rate 55 L Respiratory Rate 18 Blood Pressure 171/56 H Pulse Oximetry 95 Oxygen Delivery Method Oxygen Flow Rate 0 Oxygen Delivery Method Room Air Oxygen Flow Rate 0 Objective Labs 05/13/25 06:13 05/13/25 06:13 Labs: Laboratory Results - last 24 hr 05/12/25 05/12/25 05/12/25 18:55 18:59 20:18 WBC 5.9 RBC 4.19 L Hgb 13.1 L Hct 38.1 L MCV 90.9 MCH 31.2 MCHC 34.4 RDW 13.7 Plt Count 173 Neut % (Auto) 72.5 Lymph % (Auto) 17.7 L [place] % (Auto) 5.7 Eos % (Auto) 3.4 Baso % (Auto) 0.7 Neut # (Auto) 4300 Lymph # (Auto) 1000 L [place] # (Auto) 300 Eos # (Auto) 200 Baso # (Auto) 0 PT 12.4 INR 1.1 APTT 31 Sodium 138 Potassium 3.6 Chloride 102 Carbon Dioxide 25 BUN 33 H Creatinine 1.35 H Estimated GFR 54 L BUN/Creatinine Ratio 24.4 H Glucose 255 H POC Whole Bld Glucose 247 H Hemoglobin A1c Calcium 9.2 Total Bilirubin 0.4 AST 50 ALT 20 Alkaline Phosphatase 55 Total Creatine Kinase 130 Troponin I < 0.012 Total Protein 7.4 Albumin 4.5 Globulin 2.9 Albumin/Globulin Ratio 1.6 Triglycerides Cholesterol LDL Cholesterol, Calc HDL Cholesterol Urine RBC 0-1/hpf Urine WBC 0-1/hpf Ur Squamous Epith Cells None seen Ur Transition Epith Cell 0-1/hpf Urine Bacteria Few (2-10) H Hyaline Casts 0-1/lpf Urine Mucus 1+ H Ur Culture Indicated? Cult not indicated Vol Urine Centrifuged 10ml (spun) U Opiates 300ng/mL cut Negative Ur Oxycodone Screen Negative Urine Methadone Screen Negative Ur Barbiturates Screen Negative U Tricyclic Antidepress Negative Ur Phencyclidine Scrn Negative Ur Amphetamines Screen Negative U Methamphetamines Scrn Negative Ur MDMA Scrn (Ecstasy) Negative U Benzodiazepines Scrn Negative Urine Cocaine Screen Negative U Marijuana (THC) Screen Negative Urine pH Normal Urine Specific [place] Normal Ur Creatinine Normal 05/13/25 05/13/25 00:29 06:13 WBC 5.8 RBC 3.76 L Hgb 11.9 L Hct 34.0 L MCV 90.2 MCH 31.7 MCHC 35.2 RDW 13.2 Plt Count 144 L Neut % (Auto) 69.1 Lymph % (Auto) 19.1 L [place] % (Auto) 6.9 Eos % (Auto) 4.5 H Baso % (Auto) 0.4 Neut # (Auto) 4000 Lymph # (Auto) 1100 [place] # (Auto) 400 Eos # (Auto) 300 Baso # (Auto) 0 PT INR APTT Sodium 137 Potassium 3.8 Chloride 103 Carbon Dioxide 25 BUN 26 H Creatinine 1.09 Estimated GFR > 60 BUN/Creatinine Ratio 23.9 H Glucose 221 H POC Whole Bld Glucose 216 H Hemoglobin A1c 8.8 H Calcium 8.5 Total Bilirubin AST ALT Alkaline Phosphatase Total Creatine Kinase Troponin I Total Protein Albumin Globulin Albumin/Globulin Ratio Triglycerides 124 Cholesterol 127 L LDL Cholesterol, Calc 56 HDL Cholesterol 46 Urine RBC Urine WBC Ur Squamous Epith Cells Ur Transition Epith Cell Urine Bacteria Hyaline Casts Urine Mucus Ur Culture Indicated? Vol Urine Centrifuged U Opiates 300ng/mL cut Ur Oxycodone Screen Urine Methadone Screen Ur Barbiturates Screen U Tricyclic Antidepress Ur Phencyclidine Scrn Ur Amphetamines Screen U Methamphetamines Scrn Ur MDMA Scrn (Ecstasy) U Benzodiazepines Scrn Urine Cocaine Screen U Marijuana (THC) Screen Urine pH Urine Specific [place] Ur Creatinine Assessment & Plan Time-Based Coding :: 35 min spent with patient and on the chart (including review of chart, obtaining history, exam, reviewing outside data, placing orders, documenting exam and treatment plan, and counseling patient) on 05/13. Quality MIPS - Admit I confirm the patient?s Advance Care Plan is present, Code status is documented, Surrogate decision maker is in patient?s record [If Yes, STOP here]: Yes MIPS - Meds 'Current medications' to include all prescriptions, [id number] products, herbals, cannabis/cannabidiol products, and vitamin/mineral/dietary (nutritional) supplements. I have utilized all available resources to obtain, update, or review the patient?s current medications. [If Yes, STOP here]: Yes
[2025-05-13 08:00] VITALS: BP 170/67; PULSE 50; RESP 19; TEMP 36.1; O2SAT 98
--- NOTE | 2025-05-13 09:25 | PT-IP ANOTE ---
PT consult received. Pt adm this date with possible stroke symptoms. He presented with BP 170/67 and sinus bradycardia this a.m. Stat MR brain ordered. Will await results and then initiate PT assessment.
[2025-05-13] MEDS: HEPARIN 5,000 UNIT/ML VIAL 5000 UNIT SUBCUT ×2 (09:35→20:07)
[2025-05-13] MEDS: ASPIRIN EC 81 MG TABLET PO (09:35)
[2025-05-13] MEDS: METOPROLOL ER 25 MG TABLET PO (09:35)
[2025-05-13] MEDS: VALSARTAN 80 MG TABLET 160 MG PO (09:35)
[2025-05-13] MEDS: CARBIDOPA-LEVODOPA 25/100 TABLET 2.5 EACH PO (09:35)
[2025-05-13] MEDS: CLOPIDOGREL 75 MG TABLET PO (09:39)
--- NOTE | 2025-05-13 11:42 | PT.IIE ---
Physical Therapy Inpatient Evaluation/Re-Eval M1 PT IP Prior Functional Status Start: 05/13/25: Freq: NEEDED Status: Active Protocol: Document 05/13/25 11:00 MB (Rec: 05/13/25 11:41 MB Desktop) Medical Review Prior Functional Status Medical History Yes Reviewed Diet/Fluid Regular Consistency Communication Pt with mildly slurred speech that he still thinks is off Mobility and Gait I Activities of Daily I Living and IADL's Prior Functional No AD at home on [facility] (Other details ) Social History Household Members spouse Living Arrangements House Number of Floors ( One Floor Floors) Number of Stairs To 3 steps and no rail to enter Enter/Railing? 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 He reports he con't with right mouth droop, slurred speech and imbalance. Therapy Pain Assessment Pain When Pain Assessed At Rest Pain Present Pain Present Denied Pain M4 PT-IP Mobility and Gait Start: 05/13/25 11:25 Freq: NEEDED Status: Active Protocol: Document 05/13/25 11:00 MB (Rec: 05/13/25 11:41 MB Desktop) PT-Bed Mobility Assessment Rolling Type of Rolling Roll to Left Level of Assist Independent Supine to Sit Supine to Sit Independent Scooting Scooting to Edge of Independent Bed PT-Transfer Assessment Sit to and From Stand Sit to and from Standby Assistance Stand Equipment Transfer Assistive None Device Orthotic/Prosthetic No Devices or Brace: Transfers Transfer Destination Chair Transfer Technique Ambulation Transfer Ability Level of Assist Standby Assistance Comments Mobility Comments Orthostatic assessment with BP and HR in RUE: supine 186/58, 54; standing 150/58, 61; standing 1' did not take, standing 2' 148/61, 57. Gait Assessment Gait Gait Assistance Standby Assistance Required: Distance (Feet) 100 Able to Maintain Yes Weight Bearing Status During Gait Assistive Devices Assistive Device Gait Belt Orthotic/Prosthetic No Devices or Brace: Gait Deviations General Gait Pattern Decreased Stride Length,Flexed Trunk Factors Limiting Gait Function Factors Limiting Poor Balance Gait Function Comments Gait Comments 100'x2, SBA for forward and backwards walking, 360 deg turns right and left--decreased arm swing on the right more than left Stair Climbing Assessment Evaluation Level of Assist On Minimal Assistance Stairs Technique/Endurance Stair Climbing Ascend and Descend Direction Stair Climbing Step Over Step Technique Number of Steps 3 Climbed Query Text: Stair Climbing Set # 1 Repetitions (reps) Comments Stair Climbing [employer] with support under left arm for descending steps d/ Comments t imbalance PT-Balance Assessment Sitting Balance and Reactions Static Sitting Normal Balance Ability Dynamic Sitting Good Balance Ability Standing Balance and Reactions Static Standing Good Balance Ability Dynamic Standing Good Balance Ability M5 PT-IP Objective Assessments Start: 05/13/25 11:25 Freq: NEEDED Status: Active Protocol: Document 05/13/25 11:00 MB (Rec: 05/13/25 11:41 MB Desktop) Orientation Orientation/Cognition Level of Alertness Alert Language Function No Deficits Noted Ability Safety Awareness Decreased Safety Awareness Memory Description No Deficits Noted Gross Range of Motion Upper Extremity ROM Impairments Defer to OT Lower Extremity ROM Assessment Within Functional Limits Strength Lower Extremity Strength Assessment Within Functional Limits Coordination Assessment Gross Coordination Gross Coordination Impaired Assessment Finger to Nose Test Moderate Impairment Foot Tapping Test Minimal Impairment Heel on [place] Test Minimal Impairment Coordination Right greater than left dysmetria greatest in right UE, Comments history of PD affecting right side Sensation Assessment Comments Sensation Comments Mouth mildly with paresthesia on the right Muscle Tone Muscle Tone WNL Yes M6 PT-IP Treatment Start: 05/13/25 11:25 Freq: NEEDED Status: Active Protocol: Document 05/13/25 11:00 MB (Rec: 05/13/25 11:41 MB Desktop) Physical Therapy Treatment Other Treatments Other Treatment DGI tasks, education, benefits of walking stick for Performed outdoor walking M7 PT-IP Assessment and Plan Start: 05/13/25 11:25 Freq: NEEDED Status: Active Protocol: Document 05/13/25 11:00 MB (Rec: 05/13/25 11:41 MB Desktop) PT Summary Assessment and Plan Potential Rehabilitation Good Potential Status of Condition Evolving at Evaluation Summary Impairments Balance,Coordination,Sensation,Gait Progress Towards Progressing Toward Goals Goals Assessment Summary Pt is a 74 y/o male presenting with imbalance, dysmetria, drooping right mouth and paresthesia, slurred speech. MRI reveals pontine infarct. He lives on [address] with his and he does not have any ADs or medical services on [place]. Pt would like to d/c home. Pt has a history of PD and both UEs and LEs have deficits today and he has very high BP in supine. Overall, pt is at high fall risk and PT is also concerned about stroke progression. Recommend 24 hour assistance and PT at d/c. Goals Gait Goal Independent Gait Distance 100 Other Goals Pt will ascend and descend 3 steps without rail with I or mod I with cane. Days to Meet Goals 2 Frequency of Treatment Frequency Of Once a Day Treatment Treatment Plan Physical Therapy Gait Training,Balance Retraining,Discharge Planning, Treatment Plan Neuromuscular Re-ed,Coordination Retraining Precautions Other Precautions Fall risk, high BP Recommendations To Nursing Amount of Assist Standby Assistance Needed Discharge Recommendations PT Discharge Home with Assistance,Outpatient PT Recommendations Transportation Needs Private Vehicle at Discharge - PT assist x1
--- NOTE | 2025-05-13 12:38 | ST.IPCSEOM ---
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 Specialty: Medical Address: Phone: Fax: Email: Angeles Garrido MD Emergency Provider Physician Referring Provider Specialty: Emergency Medicine Address: [address] [place] [address], [id number] Email: Jayro Dawkins MD Admit Provider Physician Attending Provider Specialty: Internal Medicine Address: [address] [place] [address], [id number] Email: [email or web address] Speech-Language Pathology Swallow Evaluation CUSTOM FURRIER Clinical Swallow Evaluation Start: 05/13/25 12:18 Freq: Status: Active Protocol: Document 05/13/25 12:19 MA (Rec: 05/13/25 12:38 MA Desktop) Clinical Swallow Evaluation Session Time Visit Start Time 11:00 Visit Stop Time 11:30 Total Visit Minutes 30 Visit Information Visit Number [address] Alva Reason for Referral CVA Setting Assessment Location Acute Care Visit Type Note Type Initial evaluation Next Note Type Next Note Type Treatment Note Patient Information Identification Type Name History Per H&P: 74-year-old gentleman with a history of Parkinson's disease, hyperlipidemia, hypertension who at 4:00 p.m. today was noted by his to have weakness to the right side of his face. On arrival in the emergency room he also had some mild dysarthria. Code stroke was called. He noted that he had a bit of gait unsteadiness walking into the hospital but on physical exam he had normal strength and no diminished sensation appreciated. Pt had an MRI completed 05/13/25 with the following results: 1. Acute infarct involving the teja, with a 0. 8 x 1.5 cm right paramidline infarct and a punctate midline infarct present. There is associated cytotoxic edema. 2. Age-appropriate [id number] small vessel ischemic change. Pt referred for ST evaluation in order to assess swallow function. Subjective Pt sitting upright in chair in room. Pt pleasant, alert Observations and compliant with evaluation. Pt oriented x3. Chart reviewed and nursing notified. Nursing reports Pt observed with no swallow difficulties with slight slur to his speech that he reports as baseline. Cognition appears intact. Pt with history of Parkinson's disease that he states was diagnosed about 2 years ago. He reports occasional difficulties swallowing liquids at home, resulting in coughing. Reported by Patient/Caregiver Other Symptoms Difficulty swallowing liquids Current Diet Regular (IDDSI 7) Baseline Feeding Independent in self-feeding Method The IDDSI Framework Protocol: IDDSI.1 Objective Assessment Mental Status Alert,Responsive,Cooperative Oral Integrity WFL Dentition Within normal limits Comment Oral motor exam revealed Pt with slight right sided facial droop. Lingual and labial musculature and ROM appeared WNL. Pt with mandibular aide under tongue, which he reports causes him to have a slight slur to his speech. Food and Liquid Trials Position During Upright (90 degrees) Assessment Liquids Trialed Thin (IDDSI 0) Solid Trials Regular (IDDSI 7) Administration Type Straw Oral Impairment Within functional limits Oral Phase Comments Pt consumed arcadio crackers and 1/2 a peanut butter and jelly sandwich with about 4 oz of thin water via straw . He also took all his pills at once with water with nursing present and exhibited no overt s/s of aspiration such as coughing or choking. For solids, Pt with adequate bite size and rate, good bolus formation and ap transport, suspected delay in swallow, no overt s/s of aspiration or reports of food feeling stuck in throat. For thin water vis straw, Pt with adequate suction, good oral acceptance and containment, no overt s/s of aspiration. Pharyngeal Mildly impaired Impairment Pharyngeal Phase See oral phase comments. Comments Fatigue/Endurance Endurance WNL The IDDSI Framework Protocol: IDDSI.1 Findings Swallowing Function Pharyngeal phase dysphagia Severity of Swallow Mildly impaired Impairment Prognosis Good Recommendations Instrumental Yes Assessment Swallowing Treatment Yes Frequency Daily while inpatient Recommended Solids Regular (IDDSI 7) Recommended Liquids Thin (IDDSI 0) Other Pt presents with suspected mild pharyngeal phase Recommendations dysphagia d/t Pt reporting coughing on liquids at home. ST recommends regular solids and thin liquids with the below safe swallowing strategies in place. ST recommends Modified Barium Swallow study to objectively observe phases of the swallow. Safety Precautions/ Upright position at least 30 minutes after meals,Small Swallowing bites and sips when eating,Slow rate; swallow between Recommendations bites,Alternate liquids and solids,Strict oral care after intake Medication As Tolerated Recommendations Discharge Home Recommendations Education Patient/Caregiver Described results of evaluation,Patient expressed Education understanding of evaluation,Patient expressed agreement with goals & treatment plans,Patient requires further education/training Goals Short-term Goals STG 1: Pt will participate in MBS to further guide POC. STG 2: Pt will tolerate prescribed diet with <5% overt s/s of aspiration/dysphagia with use of compensatory swallowing strategies and minimal cues. Long-term Goals LTG 1: Patient will consume safest and most efficient least restrictive diet with no clinical s/s of aspiration or dysphagia 100% of the time in order to meet primary nutrition/hydration needs.
--- NOTE | 2025-05-13 12:47 | OT.IP.EVAL ---
Occupational Therapy Inpatient Evaluation/Re-Eval M1 OT IP Prior Functional Status Start: 05/13/25 12:56 Freq: Status: Active Protocol: Document 05/13/25 12:56 [facility] (Rec: 05/13/25 13:13 [facility] Desktop) Medical Review Prior Functional Status Medical History Yes Reviewed Diet/Fluid Regular Consistency Communication Pt with mildly slurred speech that he still thinks is off Mobility and Gait I Activities of Daily I Living and IADL's Prior Functional No AD at home on [facility] (Other details ) Social History Household Members spouse Living Arrangements House Number of Floors ( One Floor Floors) Number of Stairs To 3 steps and no rail to enter Enter/Railing? Home Environment Standard Height Toilet,Walk in Shower Employment Status Retired M2 OT-IP Current Condition Start: 05/13/25 12:56 Freq: Status: Active Protocol: Document 05/13/25 12:56 [facility] (Rec: 05/13/25 13:13 [facility] Desktop) Occupational Therapy Current Condition Current Condition Evaluation Date 05/13/25 Treatment Diagnosis Pontine CVA Diagnosis Onset Date 05/12/25 M3 OT- IP Subjective and Pain Start: 05/13/25 12:56 Freq: Status: Active Protocol: Document 05/13/25 12:56 [facility] (Rec: 05/13/25 13:13 [facility] Desktop) OT- Subjective Occupational Therapy Visit Type Type Initial Evaluation Visit Start Time 11:05 Visit Stop Time 12:47 Notes Pt seen from [id number] and [id number] Occupational Therapy Visit Comments Patient Comments Pt willing to get up and do OT eval. Patient/Caregiver TO go home. Goals OT Pain Assessment Pain When Pain Assessed At Rest Pain Present Pain Present Denied Pain M4 OT- IP ADL's Start: 05/13/25 12:56 Freq: Status: Active Protocol: Document 05/13/25 12:56 [facility] (Rec: 05/13/25 13:13 [facility] Desktop) OT [id number]-[id number] Comments OT Self-Feeding Pt states having difficulty with in hand manipulation Comments of the utensil in his right hand while eating. OT ADL-Grooming Comments OT Grooming Comments Not performed. OT ADL-Oral Care Comments Oral Care Comments Pt states did earlier. OT ADL-Dressing General Eval Upper Body Dressing Independent Ability Lower Body Dressing Standby Assistance Ability Comments OT Dressing Comments Pt flavors use of left hand for socks, mild neglect for right hand. OT ADL-Toileting Comments OT Toileting Not observed. Comments OT ADL-Bathing Comments OT Bathing Comments Pt will benefit from sitting for showering needs. M5 OT- IP IADL's Start: 05/13/25 12:56 Freq: Status: Active Protocol: Document 05/13/25 12:56 [facility] (Rec: 05/13/25 13:13 [facility] Desktop) OT-Instrumental Activities of Daily Living Home Safety Awareness Awareness of Need Good Awareness for Assistance at Home Ability to Problem Able to Problem Solve Solve Emergency Situations Medication Management Medication Best to have his supervision initially. Management Comments Money Management Money Management Best to have supervision initially. Comments Meal Preparation Meal Preparation Pt will need at least supervision for IADL needs. Comments Quenching Car Operator Quenching Car Operator Pt will benefit from assist. Comments Driving Driving Concerns Identified Regarding Safety Driving Comments Pt is aware at this time will not drive. M6 OT- IP Functional Cognition Start: 05/13/25 12:56 Freq: Status: Active Protocol: Document 05/13/25 12:56 [facility] (Rec: 05/13/25 13:13 [facility] Desktop) Cognitive Factors Limiting Selfcare Function Cognitive Ability Level of Alertness Alert Patient Orientation Name,Age,Birthday,Month,Year,Place,Situation Attention Span Capable of Focused Attention,Capable of Sustained Ability Attention Ability to Follow Able to Follow Multi-Step Commands Commands Memory Description Short Term Impaired Cognitive Tests SLUMS Pt scored 22/30 which implied mild neurocognitive disorder. Pt able to state 13 animals in one minute, able to recall 2/5 words after time passes, not able to draw the hour hands correctly on the clock after time given, and able to answer 3/4 questions right after paragraph read. Cognitive Comments Cognitive Assessment Pt scored 143seconds on [place] Making Part B which Comments implies severe deficits for visual attentions, speed of processing, mental flexibility , executive functioning , and task switching. Pt has decreased FMS with right hand which may have slowed down his time somewhat. OT- Vision and Hearing OT- Hearing Assessment OT- Hearing Hearing Impaired,Use of Hearing Aids Assessment OT- Vision Assessment Visual Acuity Glasses For Reading Visual Attentiveness WFL Occular Pursuits WFL Visual Convergence WFL Visual [place] WFL Vision Assessment Slight neglect right hand for dressing needs. Comments M7 OT- IP Mobility and Balance Start: 05/13/25 12:56 Freq: Status: Active Protocol: Document 05/13/25 12:56 [facility] (Rec: 05/13/25 13:13 [facility] Desktop) OT-Transfer Assessment Sit to and From Stand Sit to and from Standby Assistance Stand Transfers Transfer Ability Standby Assistance Technique Transfer Destination Bed,Chair Comments Mobility Comments SBA without a device on level surfaces, pt would benefit from walking stick outdoors. Pt states he feels 60% back to normal for his physical needs. OT- Balance Assessment Sitting Balance and Reactions Static Sitting Normal Balance Ability Dynamic Sitting Normal Balance Ability Standing Balance and Reactions Static Standing Good Balance Ability Dynamic Standing Fair Balance Ability M8 OT- IP Objective Assessments Start: 05/13/25 12:56 Freq: Status: Active Protocol: Document 05/13/25 12:56 [facility] (Rec: 05/13/25 13:13 [facility] Desktop) OT Gross Range of Motion Upper Extremity Range of Motion Assessment Right Impaired ROM Impairments RUE rotator cuff issues OT Strength Upper Extremity Strength Assessment Right Impaired OT- Coordination Assessment Upper Extremity Finger to Nose Test Bilateral UE Impaired Comments Coordination Right more impaired than left side.9 hole peg right Comments hand 66 sec, left hand 33 sec . OT Sensation Assessment Comments Summary Comments Intact for sensation and proprioception. M9 OT- IP Assessment and Plan Start: 05/13/25 12:56 Freq: Status: Active Protocol: Document 05/13/25 12:56 [facility] (Rec: 05/13/25 13:13 [facility] Desktop) OT Summary Assessment and Plan Potential Rehabilitation Good Potential Analytic Complexity Moderate at Evaluation Summary OT Impairments Balance,Coordination,Functional Cognition,Functional Mobility,Dressing,Toileting,Bathing,Toilet Transfers, Shower Transfers Progress Towards Progressing Toward Goals Goals Assessment Summary Pt MOD complexity and main barriers are steps, decreased coordination and strength with RUE, having STM issues and needing increased time for problem solving at this time. Pt insistent to go home and that his to assist him. Spoke of exercises for FMS for Right hand and would benefit from outpt therapies at this time. Goals Self-Feeding Goal Independent Grooming Goal Independent Dressing Goal Independent Toileting Goal Independent Bathing Goal Independent Toilet Transfer Goal Independent Shower Transfer Goal Independent OT-Other Goals All goals based on smooth efficient movement with RUE for ADL and mobility needs. Days to Meet Goals 5 Treatment Plan OT Treatment Plan ADL Training,Functional Cognition Training,Functional Mobility,Patient/Family Education,Discharge Planning Other Treatment Reassess Cognition Recommendations and Next Treatment Focus Discharge Recommendations OT Discharge Home with / Assist Available,Outpatient PT Recommendations Home Equipment Needs Walking sticks Transportation Needs Private Vehicle at Discharge
[2025-05-13 13:00] VITALS: BP 184/55; PULSE 54; RESP 18; TEMP 36.1; O2SAT 99
[2025-05-13 16:00] VITALS: BP 183/63; PULSE 57; RESP 19; TEMP 36.1; O2SAT 97
[2025-05-13] MEDS: ATORVASTATIN 20 MG TABLET 80 MG PO (20:06)
[2025-05-13 21:00] VITALS: BP 186/58; PULSE 52; RESP 18; TEMP 36.6; O2SAT 97
[2025-05-14 01:00] VITALS: BP 194/53; PULSE 56; RESP 18; TEMP 36.1; O2SAT 96
[2025-05-14 01:53] VITALS: BP 150/54; PULSE 55; RESP 18; TEMP 36.6; O2SAT 96
[2025-05-14 07:00] VITALS: BP 164/55; PULSE 50; RESP 16; TEMP 36.2; O2SAT 97
[2025-05-14] MEDS: CLOPIDOGREL 75 MG TABLET PO (08:25)
[2025-05-14] MEDS: ASPIRIN EC 81 MG TABLET PO (08:25)
[2025-05-14] MEDS: METOPROLOL ER 25 MG TABLET PO ×2 (08:25→16:14)
[2025-05-14] MEDS: CARBIDOPA-LEVODOPA 25/100 TABLET 2.5 EACH PO (08:25)
[2025-05-14] MEDS: HEPARIN 5,000 UNIT/ML VIAL 5000 UNIT SUBCUT (08:26)
[2025-05-14] MEDS: SODIUM CHLORIDE 0.9% FLUSH 10 ML IV (08:27)
[2025-05-14] MEDS: VALSARTAN 80 MG TABLET 160 MG PO (08:28)
--- NOTE | 2025-05-14 09:40 | PT.IPTN ---
Current Diagnoses Cerebral infarction, unspecified (05/12/25) Physical Therapy Treatment Note M2 PT-IP Current Condition Start: 05/13/25 11:25 Freq: NEEDED Status: Active Protocol: Document 05/14/25 09:16 SP (Rec: 05/14/25 10:51 SP [id number]) Physical Therapy Current Condition Current Condition Evaluation Date 05/13/25 Treatment Diagnosis Pontine stroke M3 PT-IP Subjective Start: 05/13/25 11:25 Freq: NEEDED Status: Active Protocol: Document 05/14/25 09:16 SP (Rec: 05/14/25 10:51 SP [id number]) Subjective Physical Therapy Visit Type Type Treatment Note Visit Start Time 09:16 Visit Stop Time 09:40 Number of KNITTER OPERATOR Visits 1 Physical Therapy Visit Comments Patient Comments Pt agreeable to working with KNITTER OPERATOR. Patient Goals return home with to assist him, agreeable to skilled PT. Therapy Pain Assessment Pain Present Pain Present Denied Pain M4 PT-IP Mobility and Gait Start: 05/13/25 11:25 Freq: NEEDED Status: Active Protocol: Document 05/14/25 09:16 SP (Rec: 05/14/25 10:51 SP [id number]) PT-Bed Mobility Assessment Rolling Level of Assist Standby Assistance,Contact Guard Assistance Supine to Sit Supine to Sit Standby Assistance,Contact Guard Assistance Sit to Supine Sit to Supine Independent Scooting Scooting to Edge of Independent Bed PT-Transfer Assessment Sit to and From Stand Sit to and from Standby Assistance,1 Person Assistance,Use of Upper Stand Extremities Equipment Transfer Assistive None,Gait Belt,Straight Cane,Front Wheeled Walker Device Orthotic/Prosthetic No Devices or Brace: Transfers Transfer Destination Bed,Chair Transfer Technique Ambulation with SPC CGA vs FWW SBA Transfer Ability Level of Assist Contact Guard Assistance,1 Person Assistance,Use of Upper Extremities Comments Mobility Comments Pt reclined in bed when arrived, talking to spouse on phone speaker phone. stated still sounds like pt is slurring and not as fluid speech as when was at yesterday. This KNITTER OPERATOR stated 1stt bob working with pt and can't tell change in day but that PT prior day noted slurred speech. Pt was challenged sitting straight up in bed due to trunk weakness, instructed log roll technique and use of BUE support pushing on bed to complete sitting, better not need outside physical assist. STS little trunk sways but no LOB. Instructed balance standing: NBOS head turns and EC able stabilize up to 10 sec, trialed tandem but unable and LOB Min A recovery. Semitandem CGA to get into position static looking forward stable 10 dec but trialed head turns and LOB Min A recovery. Gait around room and into hallway to stairs and back approx 140 ft, Mod-Max cues for SPC sequencing in RUe with LLE, Min cues increase NESSA and lessen stride for stability midline, doesn't always follow instructions, required CG-Min A. Gait around room with FWW, SBA good stability. Pt returned to his bed I stand>sit>supine. KNITTER OPERATOR discussed recommendation of FWW demonstrates most stability with standing gait but pt stated just not feasible on his gravel driveway, would prefer bilateral trek poles and will order them when gets home. KNITTER OPERATOR stated would like what assisted device needed be ready at DC if can get some. Recommending pt ok return home with , pt states she can help him if needed 23/01 available, suggesting outpt PT vs HHPT which ever is available which pt is welcoming to attend due to remote [facility] a challenge for access PT. Gait Assessment Gait Gait Assistance Standby Assistance,Contact Guard Assist,1 Person Assist Required: Distance (Feet) 126 Able to Maintain Yes Weight Bearing Status During Gait Assistive Devices Assistive Device Gait Belt,Straight Cane,Front Wheeled Walker Orthotic/Prosthetic No Devices or Brace: Gait Deviations General Gait Pattern Antalgic,Decreased Stride Length,Flexed Trunk,Lateral Trunk Lean,Narrow Based Gait Factors Limiting Gait Function Factors Limiting Decreased Strength,Poor Balance,Poor Safety Awareness Gait Function Comments Gait Comments 126 ft room to stairs and back around nursing station, unsteady sways with use of SPC, max cues for proper patterning in RUE with LLE (has never used 1 before), challenge. Suggested use of FWW Stair Climbing Assessment Evaluation Level of Assist On Contact Guard Assistance,Minimal Assistance,1 Person Stairs Assistance Devices Stair Climbing None,Straight Cane Assistive Devices Technique/Endurance Stair Climbing Ascend and Descend Direction Stair Climbing Step Over Step Technique Number of Steps 3 Climbed Stair Climbing Set # 3 Repetitions (reps) Comments Stair Climbing CGA with SPC for assess increased independence, trunk Comments sways but no LOB. Pt then states has shelving on his L can contact to stabilize self. Suggested with him. PT-Balance Assessment Sitting Balance and Reactions Static Sitting Normal Balance Ability Dynamic Sitting Normal Balance Ability Standing Balance and Reactions Static Standing Good Balance Ability Dynamic Standing Fair Balance Ability Device Used SPC, normal with FWW Comments Other Balance Tests/ NBOS head turns and EC good, stable Deviations/Treatment Stride stance head turns LOB Min A recover : Tandem unable to get into place and hold with outside support M5 PT-IP Objective Assessments Start: 05/13/25 11:25 Freq: NEEDED Status: Active Protocol: Document 05/13/25 11:00 MB (Rec: 05/13/25 11:41 MB Desktop) Orientation Orientation/Cognition Level of Alertness Alert Language Function No Deficits Noted Ability Safety Awareness Decreased Safety Awareness Memory Description No Deficits Noted Gross Range of Motion Upper Extremity ROM Impairments Defer to OT Lower Extremity ROM Assessment Within Functional Limits Strength Lower Extremity Strength Assessment Within Functional Limits Coordination Assessment Gross Coordination Gross Coordination Impaired Assessment Finger to Nose Test Moderate Impairment Foot Tapping Test Minimal Impairment Heel on [place] Test Minimal Impairment Coordination Right greater than left dysmetria greatest in right UE, Comments history of PD affecting right side Sensation Assessment Comments Sensation Comments Mouth mildly with paresthesia on the right Muscle Tone Muscle Tone WNL Yes M6 PT-IP Treatment Start: 05/13/25 11:25 Freq: NEEDED Status: Active Protocol: Document 05/14/25 09:16 SP (Rec: 05/14/25 10:51 SP [id number]) Physical Therapy Treatment Other Treatments Other Treatment education benefits of FWW most stability vs bilateral Performed walking sticks for inside and outdoor walking. Pt refused use of and dispense FWW. Stated can get SPC or order Tom trek poles M7 PT-IP Assessment and Plan Start: 05/13/25 11:25 Freq: NEEDED Status: Active Protocol: Document 05/14/25 09:16 SP (Rec: 05/14/25 10:51 SP [id number]) PT Summary Assessment and Plan Potential Rehabilitation Good Potential Status of Condition Evolving at Evaluation Summary Impairments Balance,Coordination,Sensation,Gait Progress Towards Progressing Toward Goals Goals Assessment Summary Pt is a 74 y/o male presenting with imbalance, dysmetria, drooping right mouth and paresthesia, slurred speech. MRI reveals pontine infarct. He lives on [address] with his and he does not have any ADs or medical services on [place]. Pt would like to d/c home. Pt has a history of PD and both UEs and LEs have deficits today, unsteady with SPC, recommend FWW but pt refuses states will get tom trek poles for stability. Recommend 24/7 assistance available and HHPT vs outpatient at d/c. Goals Gait Goal Independent Gait Distance 100 Other Goals Pt will ascend and descend 3 steps without rail with I or mod I with cane. Days to Meet Goals 2 Frequency of Treatment Frequency Of Once a Day Treatment Treatment Plan Physical Therapy Gait Training,Balance Retraining,Discharge Planning, Treatment Plan Neuromuscular Re-ed,Coordination Retraining Other Continue balance activities, Gait with AD LRAD FWW vs Recommendations and Bilateral trek poles, can assess SPC again next tx if Next Treatment Focus stable use. Precautions Other Precautions Fall risk, high BP Recommendations To Nursing Amount of Assist Standby Assistance,1 Person Assist Needed Discharge Recommendations PT Discharge Home with 24/7 Assist Available,Home Health,Outpatient Recommendations PT Equipment Needed for bilateral trek poles Home Before Discharge Transportation Needs Private Vehicle at Discharge - PT assist x1
--- NOTE | 2025-05-14 10:44 | ST.SWALLOW ---
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 Clip Wrapper Specialty: Medical Address: Phone: Fax: Email: Angeles Garrido MD Emergency Provider Physician Referring Provider Specialty: Emergency Medicine Address: [address] [place] [address], [id number] Email: Jayro Dawkins MD Admit Provider Physician Attending Provider Specialty: Internal Medicine Address: [address] [place] [address], [address] Email: [email or web address] Modified Barium Swallow Study BUTTON BUTTONHOLE MARKER Modified Barium Swallow Study Start: 05/14/25 10:15 Freq: Status: Active Protocol: Document 05/14/25 10:16 SS (Rec: 05/14/25 10:43 SS [email or web address]) Modified Barium Swallow Study Total Time Visit Start Time 09:45 Visit Stop Time 11:10 Total Visit Minutes [address] Paulo Alva MD Reason for Referral CVA, hx of PD Setting Setting Acute Care Patient Information Identification Type Name,Date of Patient History Per H&P: 74-year-old gentleman with a history of Parkinson's disease, hyperlipidemia, hypertension who at 4:00 p.m. today was noted by his to have weakness to the right side of his face. On arrival in the emergency room he also had some mild dysarthria. Code stroke was called. He noted that he had a bit of gait unsteadiness walking into the hospital but on physical exam he had normal strength and no diminished sensation appreciated. Pt had an MRI completed 05/13/25 with the following results: 1. Acute infarct involving the teja, with a 0. 8 x 1.5 cm right paramidline infarct and a punctate midline infarct present. There is associated cytotoxic edema. 2. Age-appropriate jidb-xa-zxqbivxv small vessel ischemic change. Clinical swallow evaluation was completed on 05/13. oral and pharyngeal swallowing function appeared WFL, though pt reported immediate coughing with liquids several times a day. Modified Barium Swallow Study ( MBSS) completed to visualize and assess swallow function and anatomy, determine aspiration risk, make appropriate and updated diet and treatment recommendations, as well as to identify need for additional referrals. Subjective The pt reported he intermittently coughs with liquids Observations throughout the day. Denied difficulty with solids or pills. Functional Oral Intake Scale (FOIS) Level 7: Total oral diet with no restrictions Oral Mechanism Examination: Labial Findings: R weakness/asymmetry Lingual Findings: R weakness/asymmetry Velar Findings: WFL Dentition: Has own dentition. Good oral health. Facial Symmetry: R weakness/asymmetry Sensation: intact Speech Intelligibility: 100%, though mild dysarthria present (pt reports no change from baseline) Voice: Mildly hoarse Patient Positioning Position View Lat-A/P Imaging Lateral View Textures Administered Trials Presented Thin Liquid via Spoon (IDDSI 0),Thin Liquid via Cup ( IDDSI 0),Thin Liquid via Straw (IDDSI 0),Puree (IDDSI 4 ),Soft & Bite-sized (IDDSI,Regular (IDDSI 7) Barium Tablet Yes The IDDSI Framework Protocol: IDDSI.1 Oral Impairment Source: The Modified Barium Swallow Impairment Profile (MBSImP??) Lip Closure No labial escape Tongue Control Cohesive bolus between tongue to palatal seal During Bolus Hold Bolus Preparation/ Slow prolonged chewing/mashing with complete re- Mastication collection Bolus Transport/ Brisk tongue motion Lingual Motion Oral Residue Trace residue lining oral structures Location Floor of mouth,Palate,Tongue Initiation of Bolus head in valleculae Pharyngeal Swallow Additional Oral Mild Impairment. Oral acceptance of bolus was WFL. Impairment Patient demonstrated adequate labial seal. Bolus Observations formation was disorganized and inefficient. Anterior- posterior transit of the bolus was mildly sluggish/ slowed. Mastication was prolonged. There were trace amounts of oral residue, primarily with solids, requiring multiple attempts at AP transit to propel posteriorly. Oral bolus control was WFL. Pharyngeal Impairment Source: The Modified Barium Swallow Impairment Profile (MBSImP??) Soft Palate No bolus between soft palate & pharyngeal wall Elevation Laryngeal Elevation Comp.sup.move.thyroid cart.w/comp.approx.arytenoids to epiglot petiole Anterior Hyoid Complete anterior movement Excursion Epiglottic Movement Complete inversion Laryngeal Vestibular Complete; no air/contrast in laryngeal vestibule Closure Pharyngeal Stripping Present - diminished Wave Pharyngoesophageal Complete distention & complete duration; no obstruction Segment Opening of flow Tongue Base Narrow column of contrast/air betwn tongue base & post. Retraction pharyngeal wall Pharyngeal Residue Collection of residue within/on pharyngeal structures Location Diffuse (>3 areas) Additional Mild Impairment. Swallow was initiated with liquids at Pharyngeal the pyriform sinuses. Swallow was initiated with solids Impairment at the base of tongue. Velopharyngeal closure was WFL. Observations Hyoid/laryngeal elevation was judged to be complete. Epiglottic inversion was complete. Tongue base retraction was reduced. Pharyngeal stripping wave was also reduced. Cricopharyngeal opening appeared adequate and did not appear to impede bolus flow into the esophagus. Post-swallow residue was mild, primarily at the base of tongue, posterior pharyngeal wall, valleculae and pyriform sinuses across solids and liquids. Pt sensate to residue and attempted to independently clear with multiple dry swallows, and was able to mostly clear. He also benefited from liquid wash to clear residue. Penetration / Aspiration: Penetration/aspiration not observed across trials. Penetration / Aspiration Scale (PAS): Thin 1: No material enters the airway [place] / Mildly Thick: Did not test Honey / Moderately Thick: Did not test Pudding / Semi-solid 1: No material enters the airway Soft Solid 1: No material enters the airway Regular 1: No material enters the airway Tablet 1: No material enters the airway A/P View The IDDSI Framework Protocol: IDDSI.1 A/P View Observations Pharyngeal Complete Contraction Esophageal Clearance Complete clearance; esophageal coating Upright Position Vocal Fold Function Good Esophageal Function WFL Additional A-P Barium tablet cleared to stomach with use of liquid Observations wash. Clinical Impressions Dysphagia Type Oral,Pharyngeal Findings MBS revealed mild oral and pharyngeal dysphagia with greater impact to swallowing efficiency than safety. Swallowing function was characterized by delayed swallow initiation, slow and disorganized mastication, reduced base of tongue retraction, and reduced pharyngeal stripping wave resulting in consistent mild pharyngeal residue along the base of tongue, posterior pharyngeal wall, valleculae and pyriform sinuses. Swallowing safety is intact and no laryngeal penetration or aspiration were observed. The most effective strategy for clearing residue was multiple swallows followed by a liquid wash. Reduced pharyngeal drive and osteophytes are also likely contributing to increased pharyngeal residue. Overall, the pt?s swallow is primarily impacted by efficiency concerns. Results, images, and recommendations were reviewed with the pt. Recommend he perform multiple swallows followed by a liquid wash as needed when sensing pharyngeal residue. He may benefit from dysphagia treatment targeting rehabilitative exercises to target oropharyngeal dysphagia to ensure he maintains current swallowing function given progressive nature of PD and residual lingual weakness from CVA. Rehabilitation Good Potential Patient Appropriate Yes: Targeting lingual strengthening & BOT and for Therapy pharyngeal wave stripping Recommendations Diet Liquids Order Thin (IDDSI 0) Diet Order Regular (IDDSI 7) Medication As Tolerated Recommendation Treatment Plan Therapy Outpatient Speech Therapy,Oral Motor Exercises,Base of Recommendations Tongue Exercises Additional See above. Recommended Referrals Placement Home with Home Health,Outpatient Therapy Recommendation After Discharge
[2025-05-14 11:13] VITALS: BP 163/63; PULSE 48; RESP 15; TEMP 36.6; O2SAT 97
--- NOTE | 2025-05-14 11:43 | PM.DS.1 ---
History of Present Illness History of Present Illness Chief complaint: PC ref, mouth drooping, poss stroke? Narrative: Summary (ED doctor): 74-year-old gentleman with a history of Parkinson's disease, hyperlipidemia, hypertension who at 4:00 p.m. today was noted by his to have weakness to the right side of his face. On arrival in the emergency room he also had some mild dysarthria. Code stroke was called. He noted that he had a bit of gait unsteadiness walking into the hospital but on physical exam he had normal strength and no diminished sensation appreciated. NIH Stroke Scale/Score 05/12/2025 RESULT SUMMARY: 2 points NIH Stroke Scale INPUTS: 1A: Level of consciousness ?> 0 = Alert; keenly responsive 1B: Ask month and age ?> 0 = Both questions right 1C: 'Blink eyes' & 'squeeze hands' ?> 0 = Performs both tasks 2: Horizontal extraocular movements ?> 0 = Normal 3: Visual aquino ?> 0 = No visual loss 4: Facial palsy ?> 1 = Minor paralysis (flat nasolabial fold, smile asymmetry) 5A: Left arm motor drift ?> 0 = No drift for 10 seconds 5B: Right arm motor drift ?> 0 = No drift for 10 seconds 6A: Left leg motor drift ?> 0 = No drift for 5 seconds 6B: Right leg motor drift ?> 0 = No drift for 5 seconds 7: Limb Ataxia ?> 0 = No ataxia 8: Sensation ?> 0 = Normal; no sensory loss 9: Language/aphasia ?> 0 = Normal; no aphasia 10: Dysarthria ?> 1 = Mild-moderate dysarthria: slurring but can be understood 11: Extinction/inattention ?> 0 = No abnormality S: He is doing well. He still has droop and some slurred speech. His right arm is also weak with OT evaluation and slow with coordination. Speech is requested modified barium swallow. ROS: All else reviewed and otherwise unremarkable except as noted in the history and physical. O: NAD, alert and oriented. Fluent speech. Lungs are clear, normal rate and effort. Heart is regular, no murmur gallop or rub. Abdomen is soft, non distended. Extremities are free of edema. Mild right droop, mild right arm weakness. Improved from yesterday. IMAGING: CTH: No acute intracranial hemorrhage. No large vessel territory infarct. Among the white-matter lesions there is a focal hypoattenuating lesion in the teja. This could represent an acute or chronic lacunar infarct. CTA Head and neck: No acute occlusion or critical stenosis. Calcified atherosclerotic plaques with Right ICA stenosis approximately 50-75 percent. Left ICA stenosis less than 50 percent. MR Brain: 1. Acute infarct involving the teja, with a 0.8 x 1.5 cm right paramidline infarct and a punctate midline infarct present. There is associated cytotoxic edema. 2. Age-appropriate ndxe-cz-akznhwma small vessel ischemic change. ECG: Intervals [place] Rate: 55 P: 49 MA: 164 QRS: 29 QRSD: 100 T: 65 QT: 482 QTc: 461 Interpretive Statements Sinus bradycardia Nonspecific ST abnormality A/P: 1. CVA ([place]). 2. Parkinson's disease. 3. Hyperlipidemia 4. Hypertension Hospital course: He was admitted with stroke-like symptoms with slurred speech, and right right arm clumsiness. MRI confirmed stroke and he was evaluated by therapies. Ultimately he would some improvement was felt to be stable for discharge home on dual antiplatelet therapy. He will continue on high dose rosuvastatin. He was discussed with his PCP in [place] and they will follow up closely. DC MIPS: [N], the patient has documentation of a left ventricle ejection fracture less than or equal to 40%, or moderately or severely reduced left ventricle systolic function. [N], the patient has a history of heart transplant or left ventricular assist device (LVAD). [N], the patient was prescribed an CHRIS inhibitor at discharge or is already being taken. The patient was not prescribed an CHRIS-inhibitor because of the following exception: NA. [N], the patient was prescribed Metoprolol succinate, bisoprolol, or carvedilol at discharge. The patient was not prescribed Metoprolol succinate, bisoprolol, or carvedilol at discharge because of the following exception: NA. Discharge Providers Provider Date of admission: 05/12/25 22:12 Discharge Date: 05/14/25 Primary care physician: Ivone Villalpando PA-C Consults: 05/12/25 22:07 Consult to Occupational Therapy Evaluate & Treat Comment: Physician Instructions: Evaluate and treat Consult to Physical Therapy Evaluate & Treat Comment: Physician Instructions: Evaluate and Treat Consult to Speech Therapy Evaluate & Treat Comment: swallow eval and speech Physician Instructions: Evaluate and treat 05/13/25 06:22 Consult to Speech Therapy Evaluate & Treat Comment: Physician Instructions: Evaluate and treat Discharge provider: Paulo Alva MD Summary Status at Discharge Cognitive/behavioral status at discharge: oriented Functional status at discharge: uses cane/walker Overall status at discharge: patient is progressing back to baseline Time Spent with Patient Time spent: Greater than 30 minutes Exam Vital Signs (past 8 hours): - 05/14/25 07:00 05/14/25 11:13 Temperature 97.2 F L 97.8 F Pulse Rate 50 L 48 L Respiratory Rate 16 15 Blood Pressure 164/55 H 163/63 H Pulse Oximetry 97 97 Oxygen Flow Rate 0 0 Oxygen Delivery Method Room Air Oxygen Flow Rate 0 Narrative Exam Narrative: Objective Labs 05/13/25 06:13 05/13/25 06:13 PFS Social History household members: spouse Smoking Status: Former smoker Discharge Assessment & Plan Assessment and Plan Plan of Treatment: DC on DAPT with close FU PCP next weak. Discharge Plan Discharge Plan Patient Disposition: Home Provider Discharge Comment: Stable for discharge home. Outpatient PT, OT, and speech are recommended. Discharge orders & Medications Prescriptions: New aspirin 81 mg Tablet,Delayed Release (Dr/Ec) 81 mg PO DAILY Qty: 30 0RF clopidogrel 75 mg Tablet 75 mg PO DAILY Qty: 20 0RF Continued felodipine 10 mg tablet extended release 24 hr 10 mg PO BID metoprolol succinate 25 mg tablet extended release 24 hr 25 mg PO DAILY carbidopa-levodopa 25-100 mg tablet 2.5 tab PO DAILY valsartan 160 mg tablet 160 mg PO DAILY insulin lispro 100 unit/mL insulin pen 14 unit SUBCUT 3XD rosuvastatin 40 mg tablet 40 mg PO DAILY tadalafil 20 mg tablet 20 mg PO DAILY insulin glargine [Lantus Solostar U-100 Insulin] 100 unit/mL (3 mL) insulin pen 30 - 35 unit SUBCUT DAILY Ozempic 1 mg/dose (4 mg/3 mL) pen injector 1 mg SUBCUT acetaminophen-codeine 300-30 mg tablet 1 tab PO Q4-6H PRN (Reason: pain (scale score 4-6)) hydrochlorothiazide 50 mg tablet 50 mg PO DAILY sildenafil 25 mg tablet 20 mg PO DAILY Rx Instructions: administer 30 minutes to 4 hours before activity Discontinued aspirin-dipyridamole 25-200 mg capsule, ER multiphase 12 hr 1 cap PO BID Follow up/Referrals: Ivone Villalpando PA-C [Primary Care Provider, Medical] Diet/Activity/Treatments Diet: Carb-consistent/Diabetic Visit Report/Discharge Packet Stand Alone Forms: Patient Portal/API, Stroke Signs & Symptoms Discharge Data Primary Care Provider: Ivone Villalpando
--- NOTE | 2025-05-14 12:42 | ST.IPDYTX ---
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 High School Assistant Principal Specialty: Medical Address: Phone: Fax: Email: Angeles Garrido MD Emergency Provider Physician Referring Provider Specialty: Emergency Medicine Address: [address] [place] [address], [id number] Email: Jayro Dawkins MD Admit Provider Physician Attending Provider Specialty: Internal Medicine Address: [address] [place] [address], [address] Email: [email or web address] [employer] WEAVER Dysphagia Treatment R[employer] WEAVER Dysphagia Treatment Start: 05/14/25 12:35 Freq: Status: Active Protocol: Document 05/14/25 12:35 MA (Rec: 05/14/25 12:41 MA Desktop) Dysphagia Treatment Session Time Visit Start Time 12:15 Visit Stop Time 12:30 Total Visit Minutes 15 Visit Information Visit Number 2 Setting Assessment Location Acute Care Patient Information Subjective Pt laying in bed up on ST entering room. Pt awake, Observations alert, pleasant and compliant with ST. Pt and his nurse report he might be discharging home today. Treatment Liquids Trialed Thin (IDDSI 0) Solids Trialed Regular (IDDSI 7) Treatment Activities Education related to the results of the Modified Barium Swallow (MBS) study completed earlier today was provided. The patient was educated on safe swallowing strategies and therapeutic exercises, including the effortful swallow and the Jaz exercise. The IDDSI Framework Protocol: IDDSI.1 Assessment Patient Response to Excellent Treatment Rehab Potential Excellent Assessment of ST reviewed the Modified Barium Swallow (MBS) results Improvement with the patient, which indicated some swallowing muscle weakness; however, no aspiration was observed. ST provided the patient with a handout and demonstrated the effortful swallow and Jaz swallow exercises to help strengthen the laryngeal muscles. The patient was educated on safe swallowing strategies, including: Sitting upright at 90 degrees when eating or drinking Eating at a slow rate Taking small bites and sips Alternating liquids and solids Maintaining consistent oral care The patient verbalized understanding of these recommendations. Speech therapy is not warranted at this time due to the patient being on the safest and most efficient least restrictive diet and exhibits carryover with knowledge of swallow exercises and strategies. Recommendations Recommendations Continue Current Diet Liquids Order Thin (IDDSI 0) Diet Order Regular (IDDSI 7) Medication As Tolerated Recommendations Aspiration Precautions Recommended Upright at 90 Degrees,Alternate Liquids/Solids,Small Precautions Bites/Sips Treatment Plan Appropriate for No Continued Therapy
--- NOTE | 2025-05-14 14:08 | OT.IP.TRT ---
Current Diagnoses Cerebral infarction, unspecified (05/12/25) Occupational Therapy Treatment Note M2 OT-IP Current Condition Start: 05/13/25 12:56 Freq: Status: Active Protocol: Document 05/13/25 12:56 [facility] (Rec: 05/13/25 13:13 [facility] Desktop) Occupational Therapy Current Condition Current Condition Evaluation Date 05/13/25 Treatment Diagnosis [place] CVA Diagnosis Onset Date 05/12/25 M3 OT- IP Subjective and Pain Start: 05/13/25 12:56 Freq: Status: Active Protocol: Document 05/14/25 14:19 [facility] (Rec: 05/14/25 14:31 [facility] Desktop) OT- Subjective Occupational Therapy Visit Type Type Treatment Note Visit Start Time 13:45 Visit Stop Time 14:08 Occupational Therapy Visit Comments Patient Comments Pt in the process of going in to take a shower when OT took over for nursing aid. Patient/Caregiver TO go home. Goals OT Pain Assessment Pain When Pain Assessed At Rest Pain Present Pain Present Denied Pain M4 OT- IP ADL's Start: 05/13/25 12:56 Freq: Status: Active Protocol: Document 05/14/25 14:19 [facility] (Rec: 05/14/25 14:31 [facility] Desktop) OT [id number] Comments OT Self-Feeding Not observed. Comments OT ADL-Grooming Comments OT Grooming Comments Not seen. OT ADL-Oral Care Comments Oral Care Comments Not observed. OT ADL-Dressing General Eval Upper Body Dressing Independent Ability Lower Body Dressing Standby Assistance Ability Comments OT Dressing Comments Pt still some neglect for use of right hand and vc to use it more. Emphasized best to sit for dressing needs for safety. OT ADL-Toileting General Evaluation Toileting Ability Standby Assistance OT ADL-Bathing Bathing Type Bathing Type Shower General Evaluation Bathing Ability Standby Assistance,Contact Guard Assistance Comments OT Bathing Comments Pt just wanting to wash down with water and needing cues to use foamy soap. VC for completeness to wash off all on the soap as it still on the right side of his trunk and underarm. Occasional CGA for balance while standing to shower. M5 OT- IP IADL's Start: 05/13/25 12:56 Freq: Status: Active Protocol: Document 05/13/25 12:56 [facility] (Rec: 05/13/25 13:13 [facility] Desktop) OT-Instrumental Activities of Daily Living Home Safety Awareness Awareness of Need Good Awareness for Assistance at Home Ability to Problem Able to Problem Solve Solve Emergency Situations Medication Management Medication Best to have his supervision initially. Management Comments Money Management Money Management Best to have supervision initially. Comments Meal Preparation Meal Preparation Pt will need at least supervision for IADL needs. 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 Comments Driving Driving Concerns Identified Regarding Safety Driving Comments Pt is aware at this time will not drive. M6 OT- IP Functional Cognition Start: 05/13/25 12:56 Freq: Status: Active Protocol: Document 05/14/25 14:19 [facility] (Rec: 05/14/25 14:31 [facility] Desktop) Cognitive Factors Limiting Selfcare Function Cognitive Ability Level of Alertness Alert Patient Orientation Name,Age,Birthday,Month,Year,Place,Situation Attention Span Capable of Focused Attention,Capable of Sustained Ability Attention Ability to Follow Able to Follow Multi-Step Commands Commands Memory Description Short Term Impaired Cognitive Comments Cognitive Assessment Pt refusing to redo cognitive assessment or FMS. Re- Comments emphasized pt not to drive at this time and ask his for assistance. M7 OT- IP Mobility and Balance Start: 05/13/25 12:56 Freq: Status: Active Protocol: Document 05/14/25 14:19 [facility] (Rec: 05/14/25 14:31 [facility] Desktop) OT-Transfer Assessment Sit to and From Stand Sit to and from Standby Assistance Stand Transfers Transfer Ability Standby Assistance,Contact Guard Assistance Technique Transfer Destination Bed,Chair,Shower Stall,Toilet Comments Mobility Comments SBA with shoes on and close SBA to occasional CGA especially when stepping over threshold of the shower. Pt is a little unsteady during quick turns. OT- Balance Assessment Sitting Balance and Reactions Static Sitting Normal Balance Ability Dynamic Sitting Normal Balance Ability Standing Balance and Reactions Static Standing Good Balance Ability Dynamic Standing Fair Balance Ability M8 OT- IP Objective Assessments Start: 05/13/25 12:56 Freq: Status: Active Protocol: Document 05/13/25 12:56 [facility] (Rec: 05/13/25 13:13 [facility] Desktop) OT Gross Range of Motion Upper Extremity Range of Motion Assessment Right Impaired ROM Impairments RUE rotator cuff issues OT Strength Upper Extremity Strength Assessment Right Impaired OT- Coordination Assessment Upper Extremity Finger to Nose Test Bilateral UE Impaired Comments Coordination Right more impaired than left side.9 hole peg right Comments hand 66 sec, left hand 33 sec . OT Sensation Assessment Comments Summary Comments Intact for sensation and proprioception. M9 OT- IP Assessment and Plan Start: 05/13/25 12:56 Freq: Status: Active Protocol: Document 05/14/25 14:19 [facility] (Rec: 05/14/25 14:31 [facility] Desktop) OT Summary Assessment and Plan Potential Rehabilitation Good Potential Analytic Complexity Moderate at Evaluation Summary OT Impairments Balance,Coordination,Functional Cognition,Functional Mobility,Dressing,Toileting,Bathing,Toilet Transfers, Shower Transfers Progress Towards Progressing Toward Goals Goals Assessment Summary Pt able to shower with close SBA. Pt still a little unsteady on his feet and much better with shoes on. Pt still tends to neglect use of right hand and cues to use it more. Pt insistent to go home and not wanting have a fww. Pt will benefit from at least supervision at home and outpt therapy. Goals Self-Feeding Goal Independent Grooming Goal Independent Dressing Goal Independent Toileting Goal Independent Bathing Goal Independent Toilet Transfer Goal Independent Shower Transfer Goal Independent OT-Other Goals All goals based on smooth efficient movement with RUE for ADL and mobility needs. Days to Meet Goals 4 Treatment Plan OT Treatment Plan ADL Training,Functional Cognition Training,Functional Mobility,Patient/Family Education,Discharge Planning Discharge Recommendations OT Discharge Home with 24/ Assist Available,Outpatient PT Recommendations Home Equipment Needs Walking sticks, fww? Transportation Needs Private Vehicle at Discharge
== END 2025-05-14 16:27 | disposition home or self-care (01) | DRG 66 ==
LOC: ED 18:52 → AC 22:24
PROVIDERS: Admitting Provider Internal Medicine; Emergency Provider Emergency Medicine; Referring Provider Emergency Medicine; Visit Provider Internal Medicine
DX: I63.9 Cerebral infarction, unspecified (principal); G20.A1 Parkinson's disease without dyskinesia, without mention of fluctuations; E78.5 Hyperlipidemia, unspecified; I10 Essential (primary) hypertension; R29.810 Facial weakness; R47.1 Dysarthria and anarthria; R26.81 Unsteadiness on feet; R47.81 Slurred speech; G83.21 Monoplegia of upper limb affecting right dominant side; Z87.891 Personal history of nicotine dependence; R29.702 NIHSS score 2; Z79.82 Long term (current) use of aspirin; Z79.4 Long term (current) use of insulin; Z79.85 Long-term (current) use of injectable non-insulin antidiabetic drugs
CPT/HCPCS: 36415; 70450; 70496; 70498; 70551; 71045; 74230; 80048; 80053; 80061; 80305; 81003; 81015; 82550; 82962; 83036; 84484; 85025; 85610; 85730; 87086; 92526; 92610; 92611; 93005; 93306; 97112; 97116; 97129; 97162; 97166; 97530; 97535; 99284; 99285; J0360; J1644; J2405; J7030; Q9967